=== PATIENT | female | born 1950 | race Caucasian/White ===

== ENCOUNTER 2017-01-29 10:48 | Day surgery (SDC) | payer MEDICARE, BC ==
[~2017-01-29 10:48] MED LIST: Midazolam 1 MG/ML 2 ML SDV ONE; Propofol 200 MG/20 ML SDV ONE; fentaNYL 100 MCG/2 ML SDV ONE
[2017-01-29] MEDS ORDERED: Lactated Ringers 1,000 ML IV SCH (11:30)
[2017-01-29] MEDS ORDERED: Propofol 200 MG/20 ML SDV ONE (13:40)
[2017-01-29 14:57] VITALS: BP 147/85
--- NOTE | 2017-01-29 21:37 | OR ---
DATE OF PROCEDURE: 01/29/2017 PREOPERATIVE DIAGNOSIS: History of polyps, incomplete colonoscopy. POSTOPERATIVE DIAGNOSIS: Unremarkable colonoscopy, history of colon polyps. PROCEDURE: Colonoscopy to the cecum. ANESTHESIA: IV anesthesia with monitored anesthesia care. INDICATION: This 66-year-old white female is referred for a colonoscopy. The chart says this is done for screening. Her last colonoscopic exam was done three years ago. She says that was an incomplete colonoscopy. Review of the record shows there was lot of stool in the cecum and right colon making a complete mucosal examination impossible. She has a history in the record of colon polyps. I counseled her for a colonoscopy with possible biopsy and/or polypectomy including risks and alternatives, and she gave her informed consent to proceed. DESCRIPTION OF PROCEDURE: The patient was placed in the left lateral decubitus position. IV anesthesia was administered by the Anesthesia Service. Time-out was held. A rectal exam was performed, which was unremarkable. The flexible video Olympus colonoscope was introduced through her anus, up her rectum, and out her colon all the way to the cecum. To accomplish this, we had to apply some abdominal compression. Once the cecum was reached, the scope was slowly withdrawn examining the mucosa throughout. The prep was good. No mucosal abnormalities were noted. The scope was retroflexed in the rectum with the distal rectum appearing unremarkable. The scope was straightened and removed. She tolerated the procedure well. Marcus Taveras MD /[id number] JOSELINE
== END 2017-01-29 15:00 | disposition home or self-care (01) ==
LOC: JP.SDS 10:48
PROVIDERS: ATTEND Surgery
DX: Z12.11 Encounter for screening for malignant neoplasm of colon (principal); Z86.010 Personal history of colon polyps; E11.9 Type 2 diabetes mellitus without complications; I10 Essential (primary) hypertension; Z79.899 Other long term (current) drug therapy
CPT/HCPCS: G0105; J2250; J2704; J3010; J7120

== ENCOUNTER 2021-04-20 17:27 | Inpatient (IN) | payer MEDICARE, OTHER ==
[2021-04-20] MEDS ORDERED: Sodium Chloride 0.9% 10 ML Syringe FLUSH PRN (18:03)
--- NOTE | 2021-04-20 19:57 | CRLCR ---
For Patients: As a result of the Cures Act, medical imaging exams and procedure reports are released immediately into your electronic medical record. You may view this report before your referring provider. If you have questions, please contact your health care provider. Indication: hypoxia, febrile Technique: Chest 1 view Comparison: None Findings/Impression: Cardiovascular and mediastinum: Heart size and vasculature are normal in caliber and appearance. Mediastinum is within normal limits. Lungs and pleural space: Minimal linear atelectasis at both lung bases. No focal consolidation. No sign of pleural effusion. No pneumothorax. Bones and soft tissues: No significant findings. Dictated by Janene Hirsch MD @ 04/20/2021 7:56:[address] Janene Hirsch @ Apr 20 2021 7:56PM
[2021-04-20 20:03] LABS: CORONAVIRUS COVID-19 NAA POSITIVE (NEGATIVE)
--- NOTE | 2021-04-20 20:26 | CRLCT ---
For Patients: As a result of the Century Cures Act, medical imaging exams and procedure reports are released immediately into your electronic medical record. You may view this report before your referring provider. If you have questions, please contact your health care provider. INDICATION: Fall. Hit head. TECHNIQUE: CT of the head without contrast. Coronal and sagittal reformats are included. COMPARISON: None. FINDINGS: No acute intracranial hemorrhage. No mass effect or midline shift. No hydrocephalus or extra-axial collections. White matter is within normal limits for age. No acute osseous abnormalities. Moderate to advanced paranasal sinus mucosal thickening. Bilateral TMJ arthrosis. Normal soft tissues. IMPRESSION: IMPRESSION: 1. No acute intracranial abnormalities. Please note that all CT scans at this facility use dose modulation, iterative reconstruction, and/or weight-based dosing when appropriate to reduce radiation dose to as low as reasonably achievable. Dictated by Feliciano Farmer MD @ 04/20/2021 8:26:[address] Feliciano Farmer @ Apr 20 2021 8:26PM
--- NOTE | 2021-04-20 21:01 | EDM.PDOC ---
ED HPI GENERAL MEDICAL PROBLEM - General Chief Complaint: General Stated Complaint: WEAKNESS Time Seen by Provider: 04/20/21 18:01 Source of Information: Reports: Patient, Family () History Limitations: Reports: No Limitations - History of Present Illness INITIAL COMMENTS - FREE TEXT/NARRATIVE: Lucio is a 70-year-old female presenting to the ED for evaluation of hypoxia, generalized weakness, body aches, chills, and generally feeling ill. Patient was in her usual state of health until she got up to go to the bathroom last night at which point she felt like she could not find her balance and ended up falling hitting her head on the ground. There was no loss of consciousness and the patient went back to bed after urinating. This morning she awoke and she was still feeling ill as described above. Through the course of the day it continued to worsen to where she started to have chills. She went with her to the grocery store and proceeded to shop but by the time she got to the checkout line she was completely exhausted and could go no further. She was brought in by EMS for evaluation of hypoxia and generalized weakness. EMS had her on 3 L nasal cannula with oxygen sat of 90%. She has been continuing to have modest hypoxia despite being on oxygen. She is not normally on oxygen at home. - Related Data Allergies Allergy/AdvReac Type Severity Reaction Status Date / Time No Known Allergies Allergy Verified 01/29/17 11:19 Home Meds: Home Meds Aspirin [Maryjane Chewable] 81 mg PO DAILY 08/21/13 [History] FA/Lycopene/Lut/MV,Ca,Iron,Min [Centrum] 1 tab PO DAILY 08/21/13 [History] Lisinopril 2.5 mg PO DAILY 08/21/13 [History] Pregabalin [Lyrica] 150 mg PO BID 08/21/13 [History] atorvaSTATin [Lipitor] 20 mg PO BEDTIME 08/21/13 [History] metFORMIN HCl [Glumetza] 1,000 mg PO BID 08/21/13 [History] Ammonium Lactate [Lac-Hydrin 12% Crm] 1 cm TOP BID 01/27/17 [History] Cyanocobalamin (Vitamin B-12) [Vitamin B-12] 1,000 mcg PO DAILY 01/27/17 [History] Flaxseed Oil [Flax Oil] 2,000 mg PO BID 01/27/17 [History] Meclizine [Antivert] 25 mg PO Q6H PRN 01/27/17 [History] Naltrexone 25 mg PO DAILY 01/27/17 [History] Naltrexone HCl/Bupropion HCl [Contrave ER 8-90 mg Tablet] 2 tab PO BID 01/27/17 [History] Triamcinolone Acetonide [Triamcinolone Acetonide 0.1% Oint] 1 cm TOP TID 01/27/17 [History] Dulaglutide [Trulicity] 1.5 mg SQ WEEKLY 04/20/21 [History] Past Medical History HEENT History: Reports: Cataract Cardiovascular History: Reports: Blood Clots/VTE/DVT, High Cholesterol, Hypertension 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: Psychiatric History: Reports: Depression Endocrine/Metabolic History: Reports: Diabetes, Type II Hematologic History: Reports: B12 Deficiency Oncologic (Cancer) History: Reports: Basal Cell Carcinoma Dermatologic History: Reports: Other (See Below) Other Dermatologic History: dry skin - Infectious Disease History Infectious Disease History: Reports: Chicken Pox, Measles, Mumps - Past Surgical History HEENT Surgical History: Reports: Tonsillectomy GI Surgical History: Reports: Cholecystectomy, Colonoscopy Female Surgical History: Reports: Breast Biopsy, Tubal Ligation Neurological Surgical History: Reports: Other (See Below) Other Neurological Surgeries/Procedures: lower back pain, herniated disc and bone spur Musculoskeletal Surgical History: Reports: Hip Replacement, Other (See Below) Other Musculoskeletal Surgeries/Procedures:: right hip replacement Social & Family History - Tobacco Use Tobacco Use Status *Q: Never Tobacco User - Caffeine Use Caffeine Use: Reports: Soda - Recreational Drug Use Recreational Drug Use: No ED ROS GENERAL - Review of Systems Review Of Systems: See Below Constitutional: Reports: Chills, Malaise, Weakness, Decreased Appetite HEENT: Reports: No Symptoms Respiratory: Reports: Shortness of Breath Cardiovascular: Reports: No Symptoms Endocrine: Reports: Fatigue GI/Abdominal: Reports: Nausea. Denies: Diarrhea, Vomiting : Reports: No Symptoms Musculoskeletal: Reports: Muscle Pain Skin: Reports: Other (Patient has chronic venous insufficiency with a venous stasis ulcer on the left lower leg. She is in an Unna boot for this.) Neurological: Reports: Dizziness, Difficulty Walking Psychiatric: Reports: No Symptoms Hematologic/Lymphatic: Reports: No Symptoms Immunologic: Reports: No Symptoms ED EXAM, GENERAL - Physical Exam Exam: See Below Exam Limited By: No Limitations General Appearance: Alert, Anxious, Mild Distress Eye Exam: Bilateral Eye: EOMI, PERRL Ears: Normal TMs Nose: Nasal Swelling, Clear Rhinorrhea Throat/Mouth: Normal Inspection, Normal Oropharynx, Normal Voice, No Airway Compromise Head: Atraumatic, Normocephalic Neck: Normal Inspection, Supple Respiratory/Chest: No Respiratory Distress, Crackles (Bibasilar) Cardiovascular: Normal Peripheral Pulses, Regular Rate, Rhythm, No Murmur Peripheral Pulses: 2+: Radial (L), Radial (R), Dorsalis Pedis (L), Dorsalis Pedis (R) GI/Abdominal: Normal Bowel Sounds, Soft, Non-Tender Back Exam: Normal Inspection, Full Range of Motion Extremities: Normal Range of Motion, Other (Chronic venous stasis ulceration medial lower left leg) Neurological: Alert, Oriented, CN II-XII Intact, Normal Cognition, No Motor/Sensory Deficits Psychiatric: Normal Affect, Anxious Skin Exam: Wound/Incision (Chronic venous stasis ulcer medial lower left leg) Lymphatic: No Adenopathy Course - Vital Signs Last Recorded V/S: Last Vital Signs Temp 38.8 C H 04/20/21 17:55 Pulse 89 04/20/21 18:52 Resp 17 04/20/21 18:52 BP 135/66 04/20/21 18:52 Pulse Ox 87 L 04/20/21 18:52 - Orders/Labs/Meds Orders: Active Orders 24 hr Category Date Time Status Chest 1V Frontal [CR] Stat Exams 04/20/21 18:56 Taken CULTURE BLOOD [BC] Urgent Lab 04/20/21 18:05 Received CULTURE BLOOD [BC] Urgent Lab 04/20/21 18:15 Received CULTURE URINE [RM] Stat Lab 04/20/21 19:47 Received CULTURE URINE [RM] Stat Lab 04/20/21 20:55 Ordered Sodium Chloride 0.9% [Saline Flush] Med 04/20/21 18:03 Active 10 ml FLUSH ASDIRECTED PRN Blood Culture x2 Reflex Set [OM.PC] Urgent Oth 04/20/21 18:03 Ordered Isolation [COMM] Stat Oth 04/20/21 19:05 Ordered Saline Lock Insert [OM.PC] Routine Oth 04/20/21 18:03 Ordered Medication Orders Sodium Chloride (Sodium Chloride 0.9% 10 Ml Syringe) 10 ml FLUSH ASDIRECTED PRN PRN Reason: Keep Vein Open Last Admin: 04/20/21 18:32 Dose: 10 ml Documented by: KENAN Labs: Laboratory Tests 04/20/21 04/20/21 04/20/21 Range/Units 18:03 18:05 18:05 WBC 8.1 (4.5-11.0) K/uL RBC 3.92 (3.30-5.50) M/uL Hgb 11.7 L (12.0-15.0) g/dL Hct 35.5 L (36.0-48.0) % MCV 91 (80-98) fL MCH 30 (27-31) pg MCHC 33 (32-36) % Plt Count 211 (150-400) K/uL Neut % (Auto) 78.7 H (36-66) % Lymph % (Auto) 8.8 L (24-44) % Coleman % (Auto) 10.4 H (2-6) % Eos % (Auto) 2.0 (2-4) % Baso % (Auto) 0.1 (0-1) % D-Dimer, Quantitative (0.0-500.0) ng/mL Sodium 137 L (140-148) mmol/L Potassium 4.0 (3.6-5.2) mmol/L Chloride 99 L (100-108) mmol/L Carbon Dioxide 28 (21-32) mmol/L Anion Gap 14.0 (5.0-14.0) mmol/L BUN 15 (7-18) mg/dL Creatinine 1.2 H (0.6-1.0) mg/dL Est Cr Clr Drug Dosing 49.62 mL/min Estimated GFR (MDRD) 44 L (>60) Glucose 168 H (74-106) mg/dL Lactic Acid 1.4 (0.4-2.0) mmol/L Calcium 7.9 L (8.5-10.1) mg/dL Total Bilirubin 0.8 (0.2-1.0) mg/dL AST 36 (15-37) U/L ALT 24 (12-78) U/L Alkaline Phosphatase 64 (46-116) U/L C-Reactive Protein (0.0-0.3) mg/dL Total Protein 6.4 (6.4-8.2) g/dL Albumin 2.8 L (3.4-5.0) g/dL Globulin 3.6 H (2.3-3.5) g/dL Albumin/Globulin Ratio 0.8 L (1.2-2.2) Procalcitonin ng/mL Urine Color (YELLOW) Urine Appearance (CLEAR) Urine pH (5.0-8.0) Ur Specific [place] (1.008-1.030) Urine Protein (NEGATIVE) mg/dL Urine Glucose (UA) (NEGATIVE) mg/dL Urine Ketones (NEGATIVE) mg/dL Urine Occult Blood (NEGATIVE) Urine Nitrite (NEGATIVE) Urine Bilirubin (NEGATIVE) Urine Urobilinogen (0.2-1.0) EU/dL Ur Leukocyte Esterase (NEGATIVE) Urine RBC (0-5) Urine WBC (0-5) Ur Epithelial Cells Amorphous Sediment Urine Bacteria Urine Mucus Urine Other Influenza Type A RNA (NEGATIVE) RSV RNA (INAAT) (NEGATIVE) Influenza Type B RNA (NEGATIVE) SARS-CoV-2 RNA (CHAMP) (NEGATIVE) 04/20/21 04/20/21 04/20/21 Range/Units 18:30 19:05 19:47 WBC (4.5-11.0) K/uL RBC (3.30-5.50) M/uL Hgb (12.0-15.0) g/dL Hct (36.0-48.0) % MCV (80-98) fL MCH (27-31) pg MCHC (32-36) % Plt Count (150-400) K/uL Neut % (Auto) (36-66) % Lymph % (Auto) (24-44) % Coleman % (Auto) (2-6) % Eos % (Auto) (2-4) % Baso % (Auto) (0-1) % D-Dimer, Quantitative (0.0-500.0) ng/mL Sodium (140-148) mmol/L Potassium (3.6-5.2) mmol/L Chloride (100-108) mmol/L Carbon Dioxide (21-32) mmol/L Anion Gap (5.0-14.0) mmol/L BUN (7-18) mg/dL Creatinine (0.6-1.0) mg/dL Est Cr Clr Drug Dosing mL/min Estimated GFR (MDRD) (>60) Glucose (74-106) mg/dL Lactic Acid (0.4-2.0) mmol/L Calcium (8.5-10.1) mg/dL Total Bilirubin (0.2-1.0) mg/dL AST (15-37) U/L ALT (12-78) U/L Alkaline Phosphatase (46-116) U/L C-Reactive Protein (0.0-0.3) mg/dL Total Protein (6.4-8.2) g/dL Albumin (3.4-5.0) g/dL Globulin (2.3-3.5) g/dL Albumin/Globulin Ratio (1.2-2.2) Procalcitonin 0.06 ng/mL Urine Color Yellow (YELLOW) Urine Appearance Clear (CLEAR) Urine pH 5.5 (5.0-8.0) Ur Specific [place] 1.020 (1.008-1.030) Urine Protein 30 H (NEGATIVE) mg/dL Urine Glucose (UA) Negative (NEGATIVE) mg/dL Urine Ketones Negative (NEGATIVE) mg/dL Urine Occult Blood Trace-intact H (NEGATIVE) Urine Nitrite Negative (NEGATIVE) Urine Bilirubin Negative (NEGATIVE) Urine Urobilinogen 0.2 (0.2-1.0) EU/dL Ur Leukocyte Esterase Trace H (NEGATIVE) Urine RBC 0-5 (0-5) Urine WBC 10-20 H (0-5) Ur Epithelial Cells Few Amorphous Sediment Not seen Urine Bacteria Moderate Urine Mucus Rare Urine Other Influenza Type A RNA Negative (NEGATIVE) RSV RNA (INAAT) Negative (NEGATIVE) Influenza Type B RNA Negative (NEGATIVE) SARS-CoV-2 RNA (CHAMP) Positive H (NEGATIVE) 04/20/21 04/20/21 Range/Units 20:16 20:16 WBC (4.5-11.0) K/uL RBC (3.30-5.50) M/uL Hgb (12.0-15.0) g/dL Hct (36.0-48.0) % MCV (80-98) fL MCH (27-31) pg MCHC (32-36) % Plt Count (150-400) K/uL Neut % (Auto) (36-66) % Lymph % (Auto) (24-44) % Coleman % (Auto) (2-6) % Eos % (Auto) (2-4) % Baso % (Auto) (0-1) % D-Dimer, Quantitative 2178.23 H (0.0-500.0) ng/mL Sodium (140-148) mmol/L Potassium (3.6-5.2) mmol/L Chloride (100-108) mmol/L Carbon Dioxide (21-32) mmol/L Anion Gap (5.0-14.0) mmol/L BUN (7-18) mg/dL Creatinine (0.6-1.0) mg/dL Est Cr Clr Drug Dosing mL/min Estimated GFR (MDRD) (>60) Glucose (74-106) mg/dL Lactic Acid (0.4-2.0) mmol/L Calcium (8.5-10.1) mg/dL Total Bilirubin (0.2-1.0) mg/dL AST (15-37) U/L ALT (12-78) U/L Alkaline Phosphatase (46-116) U/L C-Reactive Protein 13.24 H (0.0-0.3) mg/dL Total Protein (6.4-8.2) g/dL Albumin (3.4-5.0) g/dL Globulin (2.3-3.5) g/dL Albumin/Globulin Ratio (1.2-2.2) Procalcitonin ng/mL Urine Color (YELLOW) Urine Appearance (CLEAR) Urine pH (5.0-8.0) Ur Specific [place] (1.008-1.030) Urine Protein (NEGATIVE) mg/dL Urine Glucose (UA) (NEGATIVE) mg/dL Urine Ketones (NEGATIVE) mg/dL Urine Occult Blood (NEGATIVE) Urine Nitrite (NEGATIVE) Urine Bilirubin (NEGATIVE) Urine Urobilinogen (0.2-1.0) EU/dL Ur Leukocyte Esterase (NEGATIVE) Urine RBC (0-5) Urine WBC (0-5) Ur Epithelial Cells Amorphous Sediment Urine Bacteria Urine Mucus Urine Other Influenza Type A RNA (NEGATIVE) RSV RNA (INAAT) (NEGATIVE) Influenza Type B RNA (NEGATIVE) SARS-CoV-2 RNA (CHAMP) (NEGATIVE) Meds: Medications Generic Name Dose Route Start Last Admin Trade Name Freq PRN Reason Stop Dose Admin Sodium Chloride 10 ml 04/20/21 18:03 04/20/21 18:32 Sodium Chloride 0.9% 10 Ml Syringe FLUSH 10 ml ASDIRECTED PRN Administration Keep Vein Open - Radiology Interpretation Free Text/Narrative:: I reviewed the chest x-ray and report demonstrating bilateral basilar atelectasis without evidence for acute infiltrates. I reviewed the CT of the head and report demonstrating no acute intracranial or cranial abnormalities. - Re-Assessments/Exams Free Text/Narrative Re-Assessment/Exam: 04/20/21 21:02 Lucio is a 70-year-old female who despite having normal waveforms on tomography is significantly hypoxic on room air dropping below 80%. On 3 L via nasal cannula she is still in the 88 to 90% saturation and was put on a nonrebreather with improvement above 90%. This despite having relatively clear sounding lungs except for bibasilar crackles. Patient is febrile with a temperature of 1 to 1.3 F. Labs were obtained showing a normal leukocytosis at 8.1 with a hemoglobin of 11.7 hematocrit of 35.5 and a platelet count of 211,000. Her comprehensive metabolic panel shows a sodium 137, potassium 4.0, chloride 99, bicarbonate of 28, BUN of 15, creatinine of 1.2 and a glucose of 168. Her calcium is 7.9 with an albumin of 2.8 resulting in a corrected calcium of 8.2. We did obtain a Covid test on her and she is positive for COVID-19. Her lactate is 1.4. Precalcitonin is 0.06. Her C-reactive protein is 13.24. Her D-dimer is 2178. Urinalysis shows pyuria with WBCs 10-20 and positive leukocyte esterase. Blood and urine cultures have been obtained. Given the patient's current need for oxygen, I have arranged for her admission for COVID- 19. The patient has been vaccinated. I discussed the case with Dr. Cole who agrees to admit her. Departure - Departure Time of Disposition: 20:35 Disposition: Admitted As Inpatient 65 Clinical Impression: COVID-19, Hypoxia Urinary tract infection Qualifiers: Urinary tract infection type: site unspecified Hematuria presence: without hematuria Qualified Code(s): N39.0 - Urinary tract infection, site not specified - Discharge Information Referrals: Ryder Bhatt MD [Primary Care Provider] - Sepsis Event Note (ED) - Evaluation Sepsis Screening Result: Possible Sepsis Risk - Focused Exam Vital Signs: Vital Signs Temp Pulse Resp BP Pulse Ox 04/20/21 18:52 89 17 135/66 87 L 04/20/21 17:55 38.8 C H 93 24 H 113/75 85 L 04/20/21 17:47 38.8 C H 93 24 H 113/75 85 L - Problem List & Annotations (1) COVID-19 SNOMED Code(s): 255671733 Code(s): U07.1 - COVID-19 Status: Acute Priority: High Current Visit: Yes (2) Hypoxia SNOMED Code(s): 782055091 Code(s): R09.02 - HYPOXEMIA Status: Acute Priority: High Current Visit: Yes (3) Urinary tract infection SNOMED Code(s): 70816997 Code(s): N39.0 - URINARY TRACT INFECTION, SITE NOT SPECIFIED Status: Acute Priority: High Current Visit: Yes Qualifiers: Urinary tract infection type: site unspecified Hematuria presence: without hematuria Qualified Code(s): N39.0 - Urinary tract infection, site not specified - Problem List Review Problem List Initiated/Reviewed/Updated: Yes - My Orders Last 24 Hours: My Active Orders 04/20/21 18:03 Sodium Chloride 0.9% [Saline Flush] 10 ml FLUSH ASDIRECTED PRN Blood Culture x2 Reflex Set [OM.PC] Urgent Saline Lock Insert [OM.PC] Routine 04/20/21 18:05 CULTURE BLOOD [BC] Urgent 04/20/21 18:15 CULTURE BLOOD [BC] Urgent 04/20/21 18:56 Chest 1V Frontal [CR] Stat 04/20/21 19:05 Isolation [COMM] Stat 04/20/21 19:47 CULTURE URINE [RM] Stat - Assessment/Plan Last 24 Hours: My Active Orders 04/20/21 18:03 Sodium Chloride 0.9% [Saline Flush] 10 ml FLUSH ASDIRECTED PRN Blood Culture x2 Reflex Set [OM.PC] Urgent Saline Lock Insert [OM.PC] Routine 04/20/21 18:05 CULTURE BLOOD [BC] Urgent 04/20/21 18:15 CULTURE BLOOD [BC] Urgent 04/20/21 18:56 Chest 1V Frontal [CR] Stat 04/20/21 19:05 Isolation [COMM] Stat 04/20/21 19:47 CULTURE URINE [RM] Stat
--- NOTE | 2021-04-20 21:05 | PCM.HP.2 ---
H&P History of Present Illness - General Date of Service: 04/20/21 Admit Problem/Dx: Admission Diagnosis/Problem Admission Diagnosis/Problem Pneumonia Source of Information: Patient, Family, Provider History Limitations: Reports: Altered Mental Status (mild confusion) - History of Present Illness Initial Comments - Free Text/Narative: CC: I don't feel so good HPI: Wandy presents to the emergency room today with chills, myalgias, fatigue and shortness of breath. She is a little bit confused and has difficulty recalling recent events so most of the history is gathered from her as well as emergency room personnel. She reports feeling a little off for the past couple of weeks with mild dyspnea and some forgetfulness. She was a little more fatigued than usual yesterday and last night became very weak while trying to go to the bathroom. She had a fall and hit her head. She did not lose consciousness and was able to get up and go back to bed after going to the bathroom. This morning she had myalgias, chills, generalized weakness and some fatigue as well as dyspnea. Symptoms did progress throughout the day. While she was grocery shopping this evening she became so exhausted she could not go any further and was brought in for evaluation. She is not aware of any fevers and has not measured any temperatures. She has not been coughing. Appetite has been normal. No change in bowel or bladder habits. No sore throat. No obvious sick contacts that they are aware of. She did have both of her Covid vaccines completed in January of this year. Work-up in the emergency room revealed a Covid positive swab as well as a moderately elevated D-dimer and CRP. She is hypoxic and requiring about 4 L of supplemental oxygen. Vital signs are otherwise stable. The patient will be admitted for management of COVID-19 pneumonia with respiratory failure. - Related Data Allergies/Adverse Reactions: Allergies Allergy/AdvReac Type Severity Reaction Status Date / Time No Known Allergies Allergy Verified 01/29/17 11:19 Home Medications: Home Meds Aspirin [Maryjane Chewable] 81 mg PO DAILY 08/21/13 [History] FA/Lycopene/Lut/MV,Ca,Iron,Min [Centrum] 1 tab PO DAILY 08/21/13 [History] Lisinopril 2.5 mg PO DAILY 08/21/13 [History] Pregabalin [Lyrica] 150 mg PO BID 08/21/13 [History] atorvaSTATin [Lipitor] 20 mg PO BEDTIME 08/21/13 [History] metFORMIN HCl [Glumetza] 1,000 mg PO BID 08/21/13 [History] Ammonium Lactate [Lac-Hydrin 12% Crm] 1 cm TOP BID 01/27/17 [History] Cyanocobalamin (Vitamin B-12) [Vitamin B-12] 1,000 mcg PO DAILY 01/27/17 [History] Flaxseed Oil [Flax Oil] 2,000 mg PO BID 01/27/17 [History] Meclizine [Antivert] 25 mg PO Q6H PRN 01/27/17 [History] Naltrexone 25 mg PO DAILY 01/27/17 [History] Naltrexone HCl/Bupropion HCl [Contrave ER 8-90 mg Tablet] 2 tab PO BID 01/27/17 [History] Triamcinolone Acetonide [Triamcinolone Acetonide 0.1% Oint] 1 cm TOP TID [History] Dulaglutide [Trulicity] 1.5 mg SQ WEEKLY 04/20/21 [History] Past Medical History HEENT History: Reports: Cataract Cardiovascular History: Reports: Blood Clots/VTE/DVT, High Cholesterol, Hypertension 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: Psychiatric History: Reports: Depression Endocrine/Metabolic History: Reports: Diabetes, Type II Hematologic History: Reports: B12 Deficiency Oncologic (Cancer) History: Reports: Basal Cell Carcinoma Dermatologic History: Reports: Other (See Below) Other Dermatologic History: dry skin - Infectious Disease History Infectious Disease History: Reports: Chicken Pox, Measles, Mumps - Past Surgical History HEENT Surgical History: Reports: Tonsillectomy GI Surgical History: Reports: Cholecystectomy, Colonoscopy Female Surgical History: Reports: Breast Biopsy, Tubal Ligation Neurological Surgical History: Reports: Other (See Below) Other Neurological Surgeries/Procedures: lower back pain, herniated disc and bone spur Musculoskeletal Surgical History: Reports: Hip Replacement, Other (See Below) Other Musculoskeletal Surgeries/Procedures:: right hip replacement Social & Family History - Family History Cardiac: Denies: CAD - Tobacco Use Tobacco Use Status *Q: Never Tobacco User - Caffeine Use Caffeine Use: Reports: Soda - Alcohol Use Alcohol Use History: No - Recreational Drug Use Recreational Drug Use: No H&P Review of Systems - Review of Systems: Review Of Systems: See Below Free Text/Narrative: A complete 12 point review of systems was obtained. Pertinent positives and negatives are noted in the history of present illness. All other systems were reviewed and were negative except as noted. Patient was able to participate some and the rest was gathered from her . Exam - Exam Exam: See Below - Vital Signs Vital Signs: Last Vital Signs Temp 38.8 C H 04/20/21 17:55 Pulse 89 04/20/21 18:52 Resp 17 04/20/21 18:52 BP 135/66 04/20/21 18:52 Pulse Ox 87 L 04/20/21 18:52 Weight: 108.862 kg - Exam Quality Assessment: Supplemental Oxygen General: Alert, Cooperative, Mild Distress. No: Oriented HEENT: Conjunctiva Clear, Mucosa Moist & [place]. No: Scleral Icterus Neck: Supple, Trachea Midline. No: Lymphadenopathy, JVD Lungs: Normal Respiratory Effort, Crackles (Bibasilar) Cardiovascular: Regular Rate, Regular Rhythm. No: Systolic Murmur GI/Abdominal Exam: Normal Bowel Sounds, Soft, Non-Tender, No Distention Back Exam: Normal Inspection, Full Range of Motion Extremities: No Pedal Edema, Other (Left lower extremity is wrapped with an Unna boot from the base of the toes up to the knee). No: Increased Warmth Peripheral Pulses: 2+: Dorsalis Pedis (R) Skin: Warm, Dry Neuro Extensive - Mental Status: Alert, Nl Response to Commands. No: Oriented x3 Neuro Extensive - Motor, Sensory, Reflexes: No: Dysarthria, Abnormal Motor, Tremor Psychiatric: Alert, Normal Affect - Patient Data Lab Results Last 24 hrs: Laboratory Results - last 24 hr 04/20/21 04/20/21 04/20/21 Range/Units 18:03 18:05 18:05 WBC 8.1 (4.5-11.0) K/uL RBC 3.92 (3.30-5.50) M/uL Hgb 11.7 L (12.0-15.0) g/dL Hct 35.5 L (36.0-48.0) % MCV 91 (80-98) fL MCH 30 (27-31) pg MCHC 33 (32-36) % Plt Count 211 (150-400) K/uL Neut % (Auto) 78.7 H (36-66) % Lymph % (Auto) 8.8 L (24-44) % [place] % (Auto) 10.4 H (2-6) % Eos % (Auto) 2.0 (2-4) % Baso % (Auto) 0.1 (0-1) % D-Dimer, Quantitative (0.0-500.0) ng/mL Sodium 137 L (140-148) mmol/L Potassium 4.0 (3.6-5.2) mmol/L Chloride 99 L (100-108) mmol/L Carbon Dioxide 28 (21-32) mmol/L Anion Gap 14.0 (5.0-14.0) mmol/L BUN 15 (7-18) mg/dL Creatinine 1.2 H (0.6-1.0) mg/dL Est Cr Clr Drug Dosing 49.62 mL/min Estimated GFR (MDRD) 44 L (>60) Glucose 168 H (74-106) mg/dL Lactic Acid 1.4 (0.4-2.0) mmol/L Calcium 7.9 L (8.5-10.1) mg/dL Total Bilirubin 0.8 (0.2-1.0) mg/dL AST 36 (15-37) U/L ALT 24 (12-78) U/L Alkaline Phosphatase 64 (46-116) U/L C-Reactive Protein (0.0-0.3) mg/dL Total Protein 6.4 (6.4-8.2) g/dL Albumin 2.8 L (3.4-5.0) g/dL Globulin 3.6 H (2.3-3.5) g/dL Albumin/Globulin Ratio 0.8 L (1.2-2.2) Procalcitonin ng/mL Urine Color (YELLOW) Urine Appearance (CLEAR) Urine pH (5.0-8.0) Ur Specific [place] (1.008-1.030) Urine Protein (NEGATIVE) mg/dL Urine Glucose (UA) (NEGATIVE) mg/dL Urine Ketones (NEGATIVE) mg/dL Urine Occult Blood (NEGATIVE) Urine Nitrite (NEGATIVE) Urine Bilirubin (NEGATIVE) Urine Urobilinogen (0.2-1.0) EU/dL Ur Leukocyte Esterase (NEGATIVE) Urine RBC (0-5) Urine WBC (0-5) Ur Epithelial Cells Amorphous Sediment Urine Bacteria Urine Mucus Urine Other Influenza Type A RNA (NEGATIVE) RSV RNA (INAAT) (NEGATIVE) Influenza Type B RNA (NEGATIVE) SARS-CoV-2 RNA (CHAMP) (NEGATIVE) 04/20/21 04/20/21 04/20/21 Range/Units 18:30 19:05 19:47 WBC (4.5-11.0) K/uL RBC (3.30-5.50) M/uL Hgb (12.0-15.0) g/dL Hct (36.0-48.0) % MCV (80-98) fL MCH (27-31) pg MCHC (32-36) % Plt Count (150-400) K/uL Neut % (Auto) (36-66) % Lymph % (Auto) (24-44) % [place] % (Auto) (2-6) % Eos % (Auto) (2-4) % Baso % (Auto) (0-1) % D-Dimer, Quantitative (0.0-500.0) ng/mL Sodium (140-148) mmol/L Potassium (3.6-5.2) mmol/L Chloride (100-108) mmol/L Carbon Dioxide (21-32) mmol/L Anion Gap (5.0-14.0) mmol/L BUN (7-18) mg/dL Creatinine (0.6-1.0) mg/dL Est Cr Clr Drug Dosing mL/min Estimated GFR (MDRD) (>60) Glucose (74-106) mg/dL Lactic Acid (0.4-2.0) mmol/L Calcium (8.5-10.1) mg/dL Total Bilirubin (0.2-1.0) mg/dL AST (15-37) U/L ALT (12-78) U/L Alkaline Phosphatase (46-116) U/L C-Reactive Protein (0.0-0.3) mg/dL Total Protein (6.4-8.2) g/dL Albumin (3.4-5.0) g/dL Globulin (2.3-3.5) g/dL Albumin/Globulin Ratio (1.2-2.2) Procalcitonin 0.06 ng/mL Urine Color Yellow (YELLOW) Urine Appearance Clear (CLEAR) Urine pH 5.5 (5.0-8.0) Ur Specific [place] 1.020 (1.008-1.030) Urine Protein 30 H (NEGATIVE) mg/dL Urine Glucose (UA) Negative (NEGATIVE) mg/dL Urine Ketones Negative (NEGATIVE) mg/dL Urine Occult Blood Trace-intact H (NEGATIVE) Urine Nitrite Negative (NEGATIVE) Urine Bilirubin Negative (NEGATIVE) Urine Urobilinogen 0.2 (0.2-1.0) EU/dL Ur Leukocyte Esterase Trace H (NEGATIVE) Urine RBC 0-5 (0-5) Urine WBC 10-20 H (0-5) Ur Epithelial Cells Few Amorphous Sediment Not seen Urine Bacteria Moderate Urine Mucus Rare Urine Other Influenza Type A RNA Negative (NEGATIVE) RSV RNA (INAAT) Negative (NEGATIVE) Influenza Type B RNA Negative (NEGATIVE) SARS-CoV-2 RNA (CHAMP) Positive H (NEGATIVE) 04/20/21 04/20/21 Range/Units 20:16 20:16 WBC (4.5-11.0) K/uL RBC (3.30-5.50) M/uL Hgb (12.0-15.0) g/dL Hct (36.0-48.0) % MCV (80-98) fL MCH (27-31) pg MCHC (32-36) % Plt Count (150-400) K/uL Neut % (Auto) (36-66) % Lymph % (Auto) (24-44) % [place] % (Auto) (2-6) % Eos % (Auto) (2-4) % Baso % (Auto) (0-1) % D-Dimer, Quantitative 2178.23 H (0.0-500.0) ng/mL Sodium (140-148) mmol/L Potassium (3.6-5.2) mmol/L Chloride (100-108) mmol/L Carbon Dioxide (21-32) mmol/L Anion Gap (5.0-14.0) mmol/L BUN (7-18) mg/dL Creatinine (0.6-1.0) mg/dL Est Cr Clr Drug Dosing mL/min Estimated GFR (MDRD) (>60) Glucose (74-106) mg/dL Lactic Acid (0.4-2.0) mmol/L Calcium (8.5-10.1) mg/dL Total Bilirubin (0.2-1.0) mg/dL AST (15-37) U/L ALT (12-78) U/L Alkaline Phosphatase (46-116) U/L C-Reactive Protein 13.24 H (0.0-0.3) mg/dL Total Protein (6.4-8.2) g/dL Albumin (3.4-5.0) g/dL Globulin (2.3-3.5) g/dL Albumin/Globulin Ratio (1.2-2.2) Procalcitonin ng/mL Urine Color (YELLOW) Urine Appearance (CLEAR) Urine pH (5.0-8.0) Ur Specific [place] (1.008-1.030) Urine Protein (NEGATIVE) mg/dL Urine Glucose (UA) (NEGATIVE) mg/dL Urine Ketones (NEGATIVE) mg/dL Urine Occult Blood (NEGATIVE) Urine Nitrite (NEGATIVE) Urine Bilirubin (NEGATIVE) Urine Urobilinogen (0.2-1.0) EU/dL Ur Leukocyte Esterase (NEGATIVE) Urine RBC (0-5) Urine WBC (0-5) Ur Epithelial Cells Amorphous Sediment Urine Bacteria Urine Mucus Urine Other Influenza Type A RNA (NEGATIVE) RSV RNA (INAAT) (NEGATIVE) Influenza Type B RNA (NEGATIVE) SARS-CoV-2 RNA (CHAMP) (NEGATIVE) Result Diagrams: 04/20/21 18:03 04/20/21 18:05 Imaging Impressions Last 24 hrs: Chest x-ray-image personally reviewed and compared to the chest x-ray from 2011- heart size is normal. There is no mass, infiltrate or effusion. Sepsis Event Note - Evaluation Sepsis Screening Result: Possible Sepsis Risk - Focused Exam Vital Signs: Vital Signs Temp Pulse Resp BP Pulse Ox 04/20/21 18:52 89 17 135/66 87 L 04/20/21 17:55 38.8 C H 93 24 H 113/75 85 L 04/20/21 17:47 38.8 C H 93 24 H 113/75 85 L *Q Meaningful Use (ADM) - VTE Risk Assess *Q Each Risk Factor Represents 1 Point: Serious lung disease including pneumonia Total Score 1 Point Risk Factors: 1 Each Risk Factor Represents 2 Points: Age 60 - 74 Years Total Score 2 Point Risk Factors: 2 Each Risk Factor Represents 3 Points: History of DVT/PE Total Score 3 Point Risk Factors: 3 Each Risk Factor Represents 5 Points: None Total Score 5 Point Risk Factors: 0 Venous Thromboembolism Risk Factor Score *Q: 6 - Problem List (1) Pneumonia due to COVID-19 virus SNOMED Code(s): 334780376177624654 ICD Code: U07.1 - COVID-19; J12.82 - PNEUMONIA DUE TO CORONAVIRUS DISEASE 2018 Status: Acute Current Visit: Yes (2) Acute respiratory failure due to COVID-19 SNOMED Code(s): 473088599 ICD Code: U07.1 - COVID-19; J96.00 - ACUTE RESPIRATORY FAILURE, UNSP W HYPOXIA OR HYPERCAPNIA Status: Acute Current Visit: Yes (3) Urinary tract infection SNOMED Code(s): 22040616 ICD Code: N39.0 - URINARY TRACT INFECTION, SITE NOT SPECIFIED Status: Acute Priority: High Current Visit: Yes Qualifiers: Urinary tract infection type: site unspecified Hematuria presence: without hematuria Qualified Code(s): N39.0 - Urinary tract infection, site not specified (4) Type 2 diabetes mellitus SNOMED Code(s): 20752493 ICD Code: E11.9 - TYPE 2 DIABETES MELLITUS WITHOUT COMPLICATIONS Status: Chronic Current Visit: Yes Qualifiers: Diabetes mellitus intermediate project manager insulin use: without intermediate project manager use Diabetes mellitus complication status: with other specified complication Qualified Code(s): E11.69 - Type 2 diabetes mellitus with other specified complication Problem List Initiated/Reviewed/Updated: Yes Orders Last 24hrs: Active Orders 24 hr Category Date Time Status Patient Status Manage Transfer [TRANSFER] Routine ADT 04/20/21 20:55 Ordered Chest 1V Frontal [CR] Stat Exams 04/20/21 18:56 Taken CULTURE BLOOD [BC] Urgent Lab 04/20/21 18:05 Received CULTURE BLOOD [BC] Urgent Lab 04/20/21 18:15 Received CULTURE URINE [RM] Stat Lab 04/20/21 19:47 Received CULTURE URINE [RM] Stat Lab 04/20/21 20:58 Received Sodium Chloride 0.9% [Saline Flush] Med 04/20/21 18:03 Active 10 ml FLUSH ASDIRECTED PRN Blood Culture x2 Reflex Set [OM.PC] Urgent Oth 04/20/21 18:03 Ordered Isolation [COMM] Stat Oth 04/20/21 19:05 Ordered Saline Lock Insert [OM.PC] Routine Oth 04/20/21 18:03 Ordered Resuscitation Status Routine Resus Stat 04/20/21 20:58 Ordered Medication Orders Sodium Chloride (Sodium Chloride 0.9% 10 Ml Syringe) 10 ml FLUSH ASDIRECTED PRN PRN Reason: Keep Vein Open Last Admin: 04/20/21 18:32 Dose: 10 ml Documented by: KENAN Assessment/Plan Comment:: ASSESSMENT AND PLAN - COVID-19 pneumonia-complicated by acute respiratory failure with hypoxia. Manifestations of confusion, weakness, dyspnea and myalgias. Currently requiring about 4 L of oxygen. Moderate elevation of D-dimer and CRP. She is currently febrile. She did have both of her vaccines more than 2 months ago. We did review potential treatments for Covid including dexamethasone and remdesivir. They are aware that remdesivir is available through an emergency use authorization. We did discuss the potential risk versus benefit as well as monitoring. They were agreeable to proceeding. -Dexamethasone 6 mg daily (1) -Remdesivir 200 mg x 1 and then daily x4 -Enoxaparin 40 mg daily -Supplement oxygen -As needed albuterol inhaler -Repeat labs every 2 to 3 days unless clinically changing -Isolation precautions Acute cystitis without hematuria-UTI could explain some of her confusion. No evidence for sepsis. -Ceftriaxone -Follow-up urine culture Type 2 diabetes mellitus-controlled per history. -Continue home medications Maintenance issues - -DVT prophylaxis-enoxaparin -GI prophylaxis-not indicated -Nutrition-diabetic -Em catheter-not indicated CODE STATUS -no CPR but intubation is okay Admission justification -this patient will be admitted for inpatient services and is medically appropriate meeting medical necessity for inpatient admission as outlined in my documentation. I reasonably expect the patient will require inpatient services that span a period time over 2 midnights. I reasonably expect this patient to be discharged or transferred within 96 hours [facility]. Disposition -I anticipate discharge home after the hospital stay Primary care physician -Dr. Farzaneh Cole M.D. - Mortality Measure Prognosis:: Good
[2021-04-20] MEDS ORDERED: Ondansetron 4 MG Tab.DIS PO PRN (21:51)
[2021-04-20] MEDS ORDERED: LORazepam 2 MG/ML SDV IVPUSH PRN (21:51)
[2021-04-20] MEDS ORDERED: Acetaminophen 325 MG Tab PO PRN (21:51)
[2021-04-20] MEDS ORDERED: Albuterol 8 GM Inhaler INH PRN (21:51)
[2021-04-20] MEDS ORDERED: Ondansetron 4 MG/2 ML SDV IV PRN (21:51)
[2021-04-20] MEDS ORDERED: Benzonatate 100 MG Cap PO PRN (21:51)
[2021-04-20] MEDS ORDERED: Magnesium Hydroxide 400 MG/5 ML Susp 30 ML Cup PO PRN (21:51)
[2021-04-20] MEDS ORDERED: guaiFENesin/Dextromethorphan 100-10 MG/5 ML Soln 10 ML Cup PO PRN (21:51)
[2021-04-20] MEDS ORDERED: REMDESIVIR 200 MG in Sodium Chloride 0.9% 250 ML IV ONE (21:51)
[2021-04-20] MEDS: Enoxaparin 40 MG/0.4 ML Syringe SUBCUT SCH (22:45)
[2021-04-20] MEDS: Melatonin 3 MG Tab PO SCH (22:45)
[2021-04-20] MEDS: Lactobacillus Rhamnosus GG (Probiotic) Cap PO SCH (22:45)
[2021-04-20] MEDS: cefTRIAXone 1 GM in Sodium Chloride 0.9% 50 ML IV SCH (23:00)
[2021-04-20] MEDS: Dexamethasone 4 MG/ML SDV IVPUSH SCH (23:38)
[2021-04-21] MEDS: Insulin Lispro 100 Unit/ML 3 ML KwikPen SUBCUT SCH ×4 (09:34→22:00)
[2021-04-21] MEDS: metFORMIN 500 MG Tab PO SCH ×2 (09:39→17:27)
[2021-04-21] MEDS: Aspirin 81 MG Tab.Chew PO SCH (09:41)
[2021-04-21] MEDS: Pregabalin 75 MG Cap PO SCH ×2 (09:41→20:40)
[2021-04-21] MEDS: Lactobacillus Rhamnosus GG (Probiotic) Cap PO SCH ×2 (09:41→20:18)
[2021-04-21] MEDS: Cyanocobalamin (Vitamin B12) 1,000 MCG Tab PO SCH (09:42)
--- NOTE | 2021-04-21 11:18 | PCM.PN ---
- General Info Date of Service: 04/21/21 Subjective Update: No acute events overnight. Patient did have increasing oxygen requirements initially and was up to 6 L of oxygen for a while but is now down to 4. She reports that she feels a little better today but still feels weak and still has myalgias as well as chills. She did not have any fevers overnight following admission. Heart rate and blood pressure have been stable. Appetite is a little better today. Seems to be more clear today than yesterday. Functional Status: Reports: Pain Controlled, Tolerating Diet - Review of Systems General: Reports: Weakness. Denies: Fever Pulmonary: Reports: Shortness of Breath Gastrointestinal: Reports: Diarrhea - Patient Data Vitals - Most Recent: Last Vital Signs Temp 35.3 C L 04/21/21 11:00 Pulse 72 04/21/21 11:00 Resp 18 04/21/21 11:00 BP 116/62 04/21/21 11:00 Pulse Ox 93 L 04/21/21 11:00 Weight - Most Recent: 108.862 kg Lab Results Last 24 Hours: Laboratory Results - last 24 hr 04/20/21 04/20/21 04/20/21 Range/Units 18:03 18:05 18:05 WBC 8.1 (4.5-11.0) K/uL RBC 3.92 (3.30-5.50) M/uL Hgb 11.7 L (12.0-15.0) g/dL Hct 35.5 L (36.0-48.0) % MCV 91 (80-98) fL MCH 30 (27-31) pg MCHC 33 (32-36) % Plt Count 211 (150-400) K/uL Neut % (Auto) 78.7 H (36-66) % Lymph % (Auto) 8.8 L (24-44) % [place] % (Auto) 10.4 H (2-6) % Eos % (Auto) 2.0 (2-4) % Baso % (Auto) 0.1 (0-1) % D-Dimer, Quantitative (0.0-500.0) ng/mL Sodium 137 L (140-148) mmol/L Potassium 4.0 (3.6-5.2) mmol/L Chloride 99 L (100-108) mmol/L Carbon Dioxide 28 (21-32) mmol/L Anion Gap 14.0 (5.0-14.0) mmol/L BUN 15 (7-18) mg/dL Creatinine 1.2 H (0.6-1.0) mg/dL Est Cr Clr Drug Dosing 49.62 mL/min Estimated GFR (MDRD) 44 L (>60) Glucose 168 H (74-106) mg/dL POC Glucose (74-106) mg/dL Lactic Acid 1.4 (0.4-2.0) mmol/L Calcium 7.9 L (8.5-10.1) mg/dL Total Bilirubin 0.8 (0.2-1.0) mg/dL AST 36 (15-37) U/L ALT 24 (12-78) U/L Alkaline Phosphatase 64 (46-116) U/L C-Reactive Protein (0.0-0.3) mg/dL Total Protein 6.4 (6.4-8.2) g/dL Albumin 2.8 L (3.4-5.0) g/dL Globulin 3.6 H (2.3-3.5) g/dL Albumin/Globulin Ratio 0.8 L (1.2-2.2) Procalcitonin ng/mL Urine Color (YELLOW) Urine Appearance (CLEAR) Urine pH (5.0-8.0) Ur Specific Cade (1.008-1.030) Urine Protein (NEGATIVE) mg/dL Urine Glucose (UA) (NEGATIVE) mg/dL Urine Ketones (NEGATIVE) mg/dL Urine Occult Blood (NEGATIVE) Urine Nitrite (NEGATIVE) Urine Bilirubin (NEGATIVE) Urine Urobilinogen (0.2-1.0) EU/dL Ur Leukocyte Esterase (NEGATIVE) Urine RBC (0-5) Urine WBC (0-5) Ur Epithelial Cells Amorphous Sediment Urine Bacteria Urine Mucus Urine Other Influenza Type A RNA (NEGATIVE) RSV RNA (INAAT) (NEGATIVE) Influenza Type B RNA (NEGATIVE) SARS-CoV-2 RNA (CHAMP) (NEGATIVE) 04/20/21 04/20/21 04/20/21 Range/Units 18:30 19:05 19:47 WBC (4.5-11.0) K/uL RBC (3.30-5.50) M/uL Hgb (12.0-15.0) g/dL Hct (36.0-48.0) % MCV (80-98) fL MCH (27-31) pg MCHC (32-36) % Plt Count (150-400) K/uL Neut % (Auto) (36-66) % Lymph % (Auto) (24-44) % [place] % (Auto) (2-6) % Eos % (Auto) (2-4) % Baso % (Auto) (0-1) % D-Dimer, Quantitative (0.0-500.0) ng/mL Sodium (140-148) mmol/L Potassium (3.6-5.2) mmol/L Chloride (100-108) mmol/L Carbon Dioxide (21-32) mmol/L Anion Gap (5.0-14.0) mmol/L BUN (7-18) mg/dL Creatinine (0.6-1.0) mg/dL Est Cr Clr Drug Dosing mL/min Estimated GFR (MDRD) (>60) Glucose (74-106) mg/dL POC Glucose (74-106) mg/dL Lactic Acid (0.4-2.0) mmol/L Calcium (8.5-10.1) mg/dL Total Bilirubin (0.2-1.0) mg/dL AST (15-37) U/L ALT (12-78) U/L Alkaline Phosphatase (46-116) U/L C-Reactive Protein (0.0-0.3) mg/dL Total Protein (6.4-8.2) g/dL Albumin (3.4-5.0) g/dL Globulin (2.3-3.5) g/dL Albumin/Globulin Ratio (1.2-2.2) Procalcitonin 0.06 ng/mL Urine Color Yellow (YELLOW) Urine Appearance Clear (CLEAR) Urine pH 5.5 (5.0-8.0) Ur Specific Cade 1.020 (1.008-1.030) Urine Protein 30 H (NEGATIVE) mg/dL Urine Glucose (UA) Negative (NEGATIVE) mg/dL Urine Ketones Negative (NEGATIVE) mg/dL Urine Occult Blood Trace-intact H (NEGATIVE) Urine Nitrite Negative (NEGATIVE) Urine Bilirubin Negative (NEGATIVE) Urine Urobilinogen 0.2 (0.2-1.0) EU/dL Ur Leukocyte Esterase Trace H (NEGATIVE) Urine RBC 0-5 (0-5) Urine WBC 10-20 H (0-5) Ur Epithelial Cells Few Amorphous Sediment Not seen Urine Bacteria Moderate Urine Mucus Rare Urine Other Influenza Type A RNA Negative (NEGATIVE) RSV RNA (INAAT) Negative (NEGATIVE) Influenza Type B RNA Negative (NEGATIVE) SARS-CoV-2 RNA (CHAMP) Positive H (NEGATIVE) 04/20/21 04/20/21 04/21/21 Range/Units 20:16 20:16 05:30 WBC 7.9 (4.5-11.0) K/uL RBC 4.10 (3.30-5.50) M/uL Hgb 12.1 (12.0-15.0) g/dL Hct 37.2 (36.0-48.0) % MCV 91 (80-98) fL MCH 30 (27-31) pg MCHC 33 (32-36) % Plt Count 227 (150-400) K/uL Neut % (Auto) (36-66) % Lymph % (Auto) (24-44) % [place] % (Auto) (2-6) % Eos % (Auto) (2-4) % Baso % (Auto) (0-1) % D-Dimer, Quantitative 2178.23 H (0.0-500.0) ng/mL Sodium (140-148) mmol/L Potassium (3.6-5.2) mmol/L Chloride (100-108) mmol/L Carbon Dioxide (21-32) mmol/L Anion Gap (5.0-14.0) mmol/L BUN (7-18) mg/dL Creatinine (0.6-1.0) mg/dL Est Cr Clr Drug Dosing mL/min Estimated GFR (MDRD) (>60) Glucose (74-106) mg/dL POC Glucose (74-106) mg/dL Lactic Acid (0.4-2.0) mmol/L Calcium (8.5-10.1) mg/dL Total Bilirubin (0.2-1.0) mg/dL AST (15-37) U/L ALT (12-78) U/L Alkaline Phosphatase (46-116) U/L C-Reactive Protein 13.24 H (0.0-0.3) mg/dL Total Protein (6.4-8.2) g/dL Albumin (3.4-5.0) g/dL Globulin (2.3-3.5) g/dL Albumin/Globulin Ratio (1.2-2.2) Procalcitonin ng/mL Urine Color (YELLOW) Urine Appearance (CLEAR) Urine pH (5.0-8.0) Ur Specific Cade (1.008-1.030) Urine Protein (NEGATIVE) mg/dL Urine Glucose (UA) (NEGATIVE) mg/dL Urine Ketones (NEGATIVE) mg/dL Urine Occult Blood (NEGATIVE) Urine Nitrite (NEGATIVE) Urine Bilirubin (NEGATIVE) Urine Urobilinogen (0.2-1.0) EU/dL Ur Leukocyte Esterase (NEGATIVE) Urine RBC (0-5) Urine WBC (0-5) Ur Epithelial Cells Amorphous Sediment Urine Bacteria Urine Mucus Urine Other Influenza Type A RNA (NEGATIVE) RSV RNA (INAAT) (NEGATIVE) Influenza Type B RNA (NEGATIVE) SARS-CoV-2 RNA (CHAMP) (NEGATIVE) 04/21/21 04/21/21 Range/Units 05:30 07:35 WBC (4.5-11.0) K/uL RBC (3.30-5.50) M/uL Hgb (12.0-15.0) g/dL Hct (36.0-48.0) % MCV (80-98) fL MCH (27-31) pg MCHC (32-36) % Plt Count (150-400) K/uL Neut % (Auto) (36-66) % Lymph % (Auto) (24-44) % [place] % (Auto) (2-6) % Eos % (Auto) (2-4) % Baso % (Auto) (0-1) % D-Dimer, Quantitative (0.0-500.0) ng/mL Sodium 140 (140-148) mmol/L Potassium 3.7 (3.6-5.2) mmol/L Chloride 101 (100-108) mmol/L Carbon Dioxide 28 (21-32) mmol/L Anion Gap 10.6 (5.0-14.0) mmol/L BUN 14 (7-18) mg/dL Creatinine 1.0 (0.6-1.0) mg/dL Est Cr Clr Drug Dosing 59.55 mL/min Estimated GFR (MDRD) 55 L (>60) Glucose 194 H (74-106) mg/dL POC Glucose 161 H (74-106) mg/dL Lactic Acid (0.4-2.0) mmol/L Calcium 8.0 L (8.5-10.1) mg/dL Total Bilirubin 0.5 (0.2-1.0) mg/dL AST 42 H (15-37) U/L ALT 22 (12-78) U/L Alkaline Phosphatase 64 (46-116) U/L C-Reactive Protein (0.0-0.3) mg/dL Total Protein 6.4 (6.4-8.2) g/dL Albumin 2.6 L (3.4-5.0) g/dL Globulin 3.8 H (2.3-3.5) g/dL Albumin/Globulin Ratio 0.7 L (1.2-2.2) Procalcitonin ng/mL Urine Color (YELLOW) Urine Appearance (CLEAR) Urine pH (5.0-8.0) Ur Specific Cade (1.008-1.030) Urine Protein (NEGATIVE) mg/dL Urine Glucose (UA) (NEGATIVE) mg/dL Urine Ketones (NEGATIVE) mg/dL Urine Occult Blood (NEGATIVE) Urine Nitrite (NEGATIVE) Urine Bilirubin (NEGATIVE) Urine Urobilinogen (0.2-1.0) EU/dL Ur Leukocyte Esterase (NEGATIVE) Urine RBC (0-5) Urine WBC (0-5) Ur Epithelial Cells Amorphous Sediment Urine Bacteria Urine Mucus Urine Other Influenza Type A RNA (NEGATIVE) RSV RNA (INAAT) (NEGATIVE) Influenza Type B RNA (NEGATIVE) SARS-CoV-2 RNA (CHAMP) (NEGATIVE) Med Orders - Current: Current Medications Acetaminophen (Acetaminophen 325 Mg Tab) 650 mg PO Q4H PRN PRN Reason: Pain (Mild 1-3)/fever Last Admin: 04/20/21 22:50 Dose: 650 mg Documented by: Albuterol (Albuterol 8 Gm Inhaler) 0 gm INH Q4H PRN PRN Reason: shortness of breath/wheezing Aspirin (Aspirin 81 Mg Tab.Chew) 81 mg PO DAILY [facility] Last Admin: 04/21/21 09:41 Dose: 81 mg Documented by: Atorvastatin Calcium (Atorvastatin 20 Mg Tab) 20 mg PO BEDTIME [facility] Benzonatate (Benzonatate 100 Mg Cap) 100 mg PO TID PRN PRN Reason: Cough Cyanocobalamin (Cyanocobalamin (Vitamin B12) 1,000 Mcg Tab) 1,000 mcg PO DAILY [facility] Last Admin: 04/21/21 09:42 Dose: 1,000 mcg Documented by: Dexamethasone (Dexamethasone 4 Mg/Ml Sdv) 6 mg IVPUSH Q24H [facility] Last Admin: 04/20/21 23:38 Dose: 6 mg Documented by: Enoxaparin Sodium (Enoxaparin 40 Mg/0.4 Ml Syringe) 40 mg SUBCUT Q24H [facility] Last Admin: 04/20/21 22:45 Dose: 40 mg Documented by: Guaifenesin/Dextromethorphan (Guaifenesin/Dextromethorphan 100-10 Mg/5 Ml Soln 10 Ml Cup) 10 ml PO Q4H PRN PRN Reason: Cough Remdesivir 100 mg/ Sodium (Chloride) 100 mls @ 100 mls/hr IV Q24H [facility] Stop: 04/24/21 21:59 Ceftriaxone Sodium 1 gm/ (Sodium Chloride) 50 mls @ 100 mls/hr IV Q24H [facility] Stop: 04/22/21 22:29 Last Admin: 04/20/21 23:00 Dose: 100 mls/hr Documented by: Insulin Human Lispro (Insulin Lispro 100 Unit/Ml 3 Ml Kwikpen) 0 unit SUBCUT QIDACANDBED [facility]; Protocol Last Admin: 04/21/21 09:34 Dose: 2 units Documented by: Lactobacillus Rhamnosus (Lactobacillus Rhamnosus Gg (Probiotic) Cap) 1 cap PO BID [facility] Last Admin: 04/21/21 09:41 Dose: 1 cap Documented by: Lorazepam (Lorazepam 2 Mg/Ml Sdv) 0.5 mg IVPUSH Q4H PRN PRN Reason: Nausea/Vomiting Magnesium Hydroxide (Magnesium Hydroxide 400 Mg/5 Ml Susp 30 Ml Cup) 30 ml PO Q12H PRN PRN Reason: Constipation Melatonin (Melatonin 3 Mg Tab) 9 mg PO BEDTIME [facility] Last Admin: 04/20/21 22:45 Dose: 9 mg Documented by: Metformin HCl (Metformin 500 Mg Tab) 1,000 mg PO BIDAC [facility] Last Admin: 04/21/21 09:39 Dose: 1,000 mg Documented by: Non-Formulary Medication (Naltrexone [Naltrexone]) 25 mg PO DAILY [facility] Non-Formulary Medication (Naltrexone Hcl/Bupropion Hcl [Contrave Er 8-90 Mg Tablet]) 2 tab PO BID [facility] Ondansetron HCl (Ondansetron 4 Mg/2 Ml Sdv) 4 mg IV Q6H PRN PRN Reason: Nausea/Vomiting Ondansetron HCl (Ondansetron 4 Mg Tab.Dis) 4 mg PO Q6H PRN PRN Reason: Nausea able to take PO Pregabalin (Pregabalin 75 Mg Cap) 150 mg PO BID [facility] Last Admin: 04/21/21 09:41 Dose: 150 mg Documented by: Senna/Docusate Sodium (Docusate Sodium/Sennosides 50-8.6 Mg Tab) 1 tab PO BID PRN PRN Reason: Constipation Sodium Chloride (Sodium Chloride 0.9% 10 Ml Syringe) 10 ml FLUSH ASDIRECTED PRN PRN Reason: Keep Vein Open Last Admin: 04/20/21 18:32 Dose: 10 ml Documented by: Discontinued Medications Remdesivir 200 mg/ Sodium (Chloride) 250 mls @ 250 mls/hr IV ONETIME ONE Stop: 04/20/21 21:52 Last Admin: 04/20/21 23:43 Dose: 250 mls/hr Documented by: - Exam Quality Assessment: Supplemental Oxygen General: Alert, Oriented, Cooperative, No Acute Distress Lungs: Normal Respiratory Effort GI/Abdominal Exam: Soft, No Distention Extremities: No Pedal Edema, Other (left leg wrapped in Unna boot ) Skin: Warm, Dry Psy/Mental Status: Alert, Normal Affect - Patient Data Lab Results Last 24 hrs: Laboratory Results - last 24 hr 04/20/21 04/20/21 04/20/21 Range/Units 18:03 18:05 18:05 WBC 8.1 (4.5-11.0) K/uL RBC 3.92 (3.30-5.50) M/uL Hgb 11.7 L (12.0-15.0) g/dL Hct 35.5 L (36.0-48.0) % MCV 91 (80-98) fL MCH 30 (27-31) pg MCHC 33 (32-36) % Plt Count 211 (150-400) K/uL Neut % (Auto) 78.7 H (36-66) % Lymph % (Auto) 8.8 L (24-44) % [place] % (Auto) 10.4 H (2-6) % Eos % (Auto) 2.0 (2-4) % Baso % (Auto) 0.1 (0-1) % D-Dimer, Quantitative (0.0-500.0) ng/mL Sodium 137 L (140-148) mmol/L Potassium 4.0 (3.6-5.2) mmol/L Chloride 99 L (100-108) mmol/L Carbon Dioxide 28 (21-32) mmol/L Anion Gap 14.0 (5.0-14.0) mmol/L BUN 15 (7-18) mg/dL Creatinine 1.2 H (0.6-1.0) mg/dL Est Cr Clr Drug Dosing 49.62 mL/min Estimated GFR (MDRD) 44 L (>60) Glucose 168 H (74-106) mg/dL POC Glucose (74-106) mg/dL Lactic Acid 1.4 (0.4-2.0) mmol/L Calcium 7.9 L (8.5-10.1) mg/dL Total Bilirubin 0.8 (0.2-1.0) mg/dL AST 36 (15-37) U/L ALT 24 (12-78) U/L Alkaline Phosphatase 64 (46-116) U/L C-Reactive Protein (0.0-0.3) mg/dL Total Protein 6.4 (6.4-8.2) g/dL Albumin 2.8 L (3.4-5.0) g/dL Globulin 3.6 H (2.3-3.5) g/dL Albumin/Globulin Ratio 0.8 L (1.2-2.2) Procalcitonin ng/mL Urine Color (YELLOW) Urine Appearance (CLEAR) Urine pH (5.0-8.0) Ur Specific Cade (1.008-1.030) Urine Protein (NEGATIVE) mg/dL Urine Glucose (UA) (NEGATIVE) mg/dL Urine Ketones (NEGATIVE) mg/dL Urine Occult Blood (NEGATIVE) Urine Nitrite (NEGATIVE) Urine Bilirubin (NEGATIVE) Urine Urobilinogen (0.2-1.0) EU/dL Ur Leukocyte Esterase (NEGATIVE) Urine RBC (0-5) Urine WBC (0-5) Ur Epithelial Cells Amorphous Sediment Urine Bacteria Urine Mucus Urine Other Influenza Type A RNA (NEGATIVE) RSV RNA (INAAT) (NEGATIVE) Influenza Type B RNA (NEGATIVE) SARS-CoV-2 RNA (CHAMP) (NEGATIVE) 04/20/21 04/20/21 04/20/21 Range/Units 18:30 19:05 19:47 WBC (4.5-11.0) K/uL RBC (3.30-5.50) M/uL Hgb (12.0-15.0) g/dL Hct (36.0-48.0) % MCV (80-98) fL MCH (27-31) pg MCHC (32-36) % Plt Count (150-400) K/uL Neut % (Auto) (36-66) % Lymph % (Auto) (24-44) % [place] % (Auto) (2-6) % Eos % (Auto) (2-4) % Baso % (Auto) (0-1) % D-Dimer, Quantitative (0.0-500.0) ng/mL Sodium (140-148) mmol/L Potassium (3.6-5.2) mmol/L Chloride (100-108) mmol/L Carbon Dioxide (21-32) mmol/L Anion Gap (5.0-14.0) mmol/L BUN (7-18) mg/dL Creatinine (0.6-1.0) mg/dL Est Cr Clr Drug Dosing mL/min Estimated GFR (MDRD) (>60) Glucose (74-106) mg/dL POC Glucose (74-106) mg/dL Lactic Acid (0.4-2.0) mmol/L Calcium (8.5-10.1) mg/dL Total Bilirubin (0.2-1.0) mg/dL AST (15-37) U/L ALT (12-78) U/L Alkaline Phosphatase (46-116) U/L C-Reactive Protein (0.0-0.3) mg/dL Total Protein (6.4-8.2) g/dL Albumin (3.4-5.0) g/dL Globulin (2.3-3.5) g/dL Albumin/Globulin Ratio (1.2-2.2) Procalcitonin 0.06 ng/mL Urine Color Yellow (YELLOW) Urine Appearance Clear (CLEAR) Urine pH 5.5 (5.0-8.0) Ur Specific Cade 1.020 (1.008-1.030) Urine Protein 30 H (NEGATIVE) mg/dL Urine Glucose (UA) Negative (NEGATIVE) mg/dL Urine Ketones Negative (NEGATIVE) mg/dL Urine Occult Blood Trace-intact H (NEGATIVE) Urine Nitrite Negative (NEGATIVE) Urine Bilirubin Negative (NEGATIVE) Urine Urobilinogen 0.2 (0.2-1.0) EU/dL Ur Leukocyte Esterase Trace H (NEGATIVE) Urine RBC 0-5 (0-5) Urine WBC 10-20 H (0-5) Ur Epithelial Cells Few Amorphous Sediment Not seen Urine Bacteria Moderate Urine Mucus Rare Urine Other Influenza Type A RNA Negative (NEGATIVE) RSV RNA (INAAT) Negative (NEGATIVE) Influenza Type B RNA Negative (NEGATIVE) SARS-CoV-2 RNA (CHAMP) Positive H (NEGATIVE) 04/20/21 04/20/21 04/21/21 Range/Units 20:16 20:16 05:30 WBC 7.9 (4.5-11.0) K/uL RBC 4.10 (3.30-5.50) M/uL Hgb 12.1 (12.0-15.0) g/dL Hct 37.2 (36.0-48.0) % MCV 91 (80-98) fL MCH 30 (27-31) pg MCHC 33 (32-36) % Plt Count 227 (150-400) K/uL Neut % (Auto) (36-66) % Lymph % (Auto) (24-44) % [place] % (Auto) (2-6) % Eos % (Auto) (2-4) % Baso % (Auto) (0-1) % D-Dimer, Quantitative 2178.23 H (0.0-500.0) ng/mL Sodium (140-148) mmol/L Potassium (3.6-5.2) mmol/L Chloride (100-108) mmol/L Carbon Dioxide (21-32) mmol/L Anion Gap (5.0-14.0) mmol/L BUN (7-18) mg/dL Creatinine (0.6-1.0) mg/dL Est Cr Clr Drug Dosing mL/min Estimated GFR (MDRD) (>60) Glucose (74-106) mg/dL POC Glucose (74-106) mg/dL Lactic Acid (0.4-2.0) mmol/L Calcium (8.5-10.1) mg/dL Total Bilirubin (0.2-1.0) mg/dL AST (15-37) U/L ALT (12-78) U/L Alkaline Phosphatase (46-116) U/L C-Reactive Protein 13.24 H (0.0-0.3) mg/dL Total Protein (6.4-8.2) g/dL Albumin (3.4-5.0) g/dL Globulin (2.3-3.5) g/dL Albumin/Globulin Ratio (1.2-2.2) Procalcitonin ng/mL Urine Color (YELLOW) Urine Appearance (CLEAR) Urine pH (5.0-8.0) Ur Specific Cade (1.008-1.030) Urine Protein (NEGATIVE) mg/dL Urine Glucose (UA) (NEGATIVE) mg/dL Urine Ketones (NEGATIVE) mg/dL Urine Occult Blood (NEGATIVE) Urine Nitrite (NEGATIVE) Urine Bilirubin (NEGATIVE) Urine Urobilinogen (0.2-1.0) EU/dL Ur Leukocyte Esterase (NEGATIVE) Urine RBC (0-5) Urine WBC (0-5) Ur Epithelial Cells Amorphous Sediment Urine Bacteria Urine Mucus Urine Other Influenza Type A RNA (NEGATIVE) RSV RNA (INAAT) (NEGATIVE) Influenza Type B RNA (NEGATIVE) SARS-CoV-2 RNA (CHAMP) (NEGATIVE) 04/21/21 04/21/21 Range/Units 05:30 07:35 WBC (4.5-11.0) K/uL RBC (3.30-5.50) M/uL Hgb (12.0-15.0) g/dL Hct (36.0-48.0) % MCV (80-98) fL MCH (27-31) pg MCHC (32-36) % Plt Count (150-400) K/uL Neut % (Auto) (36-66) % Lymph % (Auto) (24-44) % [place] % (Auto) (2-6) % Eos % (Auto) (2-4) % Baso % (Auto) (0-1) % D-Dimer, Quantitative (0.0-500.0) ng/mL Sodium 140 (140-148) mmol/L Potassium 3.7 (3.6-5.2) mmol/L Chloride 101 (100-108) mmol/L Carbon Dioxide 28 (21-32) mmol/L Anion Gap 10.6 (5.0-14.0) mmol/L BUN 14 (7-18) mg/dL Creatinine 1.0 (0.6-1.0) mg/dL Est Cr Clr Drug Dosing 59.55 mL/min Estimated GFR (MDRD) 55 L (>60) Glucose 194 H (74-106) mg/dL POC Glucose 161 H (74-106) mg/dL Lactic Acid (0.4-2.0) mmol/L Calcium 8.0 L (8.5-10.1) mg/dL Total Bilirubin 0.5 (0.2-1.0) mg/dL AST 42 H (15-37) U/L ALT 22 (12-78) U/L Alkaline Phosphatase 64 (46-116) U/L C-Reactive Protein (0.0-0.3) mg/dL Total Protein 6.4 (6.4-8.2) g/dL Albumin 2.6 L (3.4-5.0) g/dL Globulin 3.8 H (2.3-3.5) g/dL Albumin/Globulin Ratio 0.7 L (1.2-2.2) Procalcitonin ng/mL Urine Color (YELLOW) Urine Appearance (CLEAR) Urine pH (5.0-8.0) Ur Specific Cade (1.008-1.030) Urine Protein (NEGATIVE) mg/dL Urine Glucose (UA) (NEGATIVE) mg/dL Urine Ketones (NEGATIVE) mg/dL Urine Occult Blood (NEGATIVE) Urine Nitrite (NEGATIVE) Urine Bilirubin (NEGATIVE) Urine Urobilinogen (0.2-1.0) EU/dL Ur Leukocyte Esterase (NEGATIVE) Urine RBC (0-5) Urine WBC (0-5) Ur Epithelial Cells Amorphous Sediment Urine Bacteria Urine Mucus Urine Other Influenza Type A RNA (NEGATIVE) RSV RNA (INAAT) (NEGATIVE) Influenza Type B RNA (NEGATIVE) SARS-CoV-2 RNA (CHAMP) (NEGATIVE) Result Diagrams: 04/21/21 05:30 04/21/21 05:30 Sepsis Event Note - Evaluation Sepsis Screening Result: No Definite Risk - Focused Exam Vital Signs: Vital Signs Temp Temp Pulse Resp BP Pulse Ox 04/21/21 11:00 35.3 C L 72 18 116/62 93 L 04/21/21 09:54 91 L 04/21/21 07:15 92 L 04/21/21 07:00 35.4 C L 71 18 133/64 97 04/21/21 03:26 35.4 C L 04/21/21 01:00 93 L 04/20/21 23:20 37.3 C - Problem List & Annotations (1) Pneumonia due to COVID-19 virus SNOMED Code(s): 433712672217556039 Code(s): U07.1 - COVID-19; J12.82 - PNEUMONIA DUE TO CORONAVIRUS DISEASE 2018 Status: Acute Current Visit: Yes (2) Acute respiratory failure due to COVID-19 SNOMED Code(s): 965031029 Code(s): U07.1 - COVID-19; J96.00 - ACUTE RESPIRATORY FAILURE, UNSP W HYPOXIA OR HYPERCAPNIA Status: Acute Current Visit: Yes (3) Urinary tract infection SNOMED Code(s): 76434941 Code(s): N39.0 - URINARY TRACT INFECTION, SITE NOT SPECIFIED Status: Acute Priority: High Current Visit: Yes Qualifiers: Urinary tract infection type: site unspecified Hematuria presence: without hematuria Qualified Code(s): N39.0 - Urinary tract infection, site not specified (4) Type 2 diabetes mellitus SNOMED Code(s): 38524718 Code(s): E11.9 - TYPE 2 DIABETES MELLITUS WITHOUT COMPLICATIONS Status: Chronic Current Visit: Yes Qualifiers: Diabetes mellitus intermodal dispatcher insulin use: without intermodal dispatcher use Diabetes mellitus complication status: with other specified complication Qualified Code(s): E11.69 - Type 2 diabetes mellitus with other specified complication - Problem List Review Problem List Initiated/Reviewed/Updated: Yes - My Orders Last 24 Hours: My Active Orders 04/20/21 Dinner Consistent Carbohydrate Diet [DIET] 04/20/21 20:58 CULTURE URINE [RM] Stat Resuscitation Status Routine 04/20/21 21:51 Acetaminophen [TylenoL] 650 mg PO Q4H PRN Albuterol [Ventolin HFA] 0 gm INH Q4H PRN Benzonatate [Tessalon Perles] 100 mg PO TID PRN Dextromethorphan/guaiFENesin [Robitussin DM] 10 ml PO Q4H PRN Docusate Sodium/Sennosides [Senna Plus] 1 tab PO BID PRN LORazepam [Ativan] 0.5 mg IVPUSH Q4H PRN Lactobacillus Rhamnosus GG [Culturelle] 1 cap PO BID Magnesium Hydroxide [Milk of Magnesia] 30 ml PO Q12H PRN Melatonin 9 mg PO BEDTIME Naltrexone HCl/Bupropion HCl [Contrave ER 8-90 mg Tablet] 2 tab PO BID Ondansetron [Zofran ODT] 4 mg PO Q6H PRN Ondansetron [Zofran] 4 mg IV Q6H PRN 04/20/21 21:51 Patient Status [ADT] Routine Communication Order [RC] PRN Communication Order [RC] PRN Diabetes Education [RC] Click to Edit Intake and Output [RC] QSHIFT Notify Provider Vital Signs [RC] ASDIRECTED Notify Provider [RC] PRN Nurse Communication: Isolation [RC] ASDIRECTED Oxygen Therapy [RC] PRN Pulse Oximetry [RC] CONTINUOUS RT Post Treatment Assessment [RC] Click to Edit Up With Assistance [RC] ASDIRECTED VTE/DVT Education [RC] Per Unit Routine Vital Signs [RC] Q4H Isolation [COMM] Routine 04/20/21 22:00 Enoxaparin [Lovenox] 40 mg SUBCUT Q24H cefTRIAXone [Rocephin] 1 gm Sodium Chloride 0.9% [Normal Saline] 50 ml IV Q24H dexAMETHasone [Decadron] 6 mg IVPUSH Q24H 04/21/21 07:00 Insulin Lispro [HumaLOG] See Protocol SUBCUT QIDACANDBED 04/21/21 07:30 metFORMIN [Glucophage] 1,000 mg PO BIDAC 04/21/21 09:00 Aspirin 81 mg PO DAILY Cyanocobalamin (Vitamin B12) [Vitamin B12] 1,000 mcg PO DAILY Naltrexone [Naltrexone] 25 mg PO DAILY Pregabalin [Lyrica] 150 mg PO BID 04/21/21 11:30 GLUCOSE POC LAB TO COLLECT JPM [POC] QIDACANDBED 04/21/21 16:30 GLUCOSE POC LAB TO COLLECT JPM [POC] QIDACANDBED 04/21/21 21:00 GLUCOSE POC LAB TO COLLECT JPM [POC] QIDACANDBED Remdesivir 100 mg Sodium Chloride 0.9% [Normal Saline] 100 ml IV Q24H atorvaSTATin [Lipitor] 20 mg PO BEDTIME 04/22/21 05:11 C-REACTIVE PROTEIN [CHEM] AM CBC W/O DIFF,HEMOGRAM [HEME] AM COMPREHENSIVE METABOLIC PN,CMP [CHEM] AM D-DIMER QUANTITATIVE [COAG] AM 04/22/21 07:30 GLUCOSE POC LAB TO COLLECT JPM [POC] QIDACANDBED 04/22/21 11:30 GLUCOSE POC LAB TO COLLECT JPM [POC] QIDACANDBED 04/22/21 16:30 GLUCOSE POC LAB TO COLLECT JPM [POC] QIDACANDBED 04/22/21 21:00 GLUCOSE POC LAB TO COLLECT JPM [POC] QIDACANDBED 04/23/21 07:30 GLUCOSE POC LAB TO COLLECT JPM [POC] QIDACANDBED 04/23/21 11:30 GLUCOSE POC LAB TO COLLECT JPM [POC] QIDACANDBED 04/23/21 16:30 GLUCOSE POC LAB TO COLLECT JPM [POC] QIDACANDBED 04/23/21 21:00 GLUCOSE POC LAB TO COLLECT JPM [POC] QIDACANDBED 04/24/21 07:30 GLUCOSE POC LAB TO COLLECT JPM [POC] QIDACANDBED 04/24/21 11:30 GLUCOSE POC LAB TO COLLECT JPM [POC] QIDACANDBED 04/24/21 16:30 GLUCOSE POC LAB TO COLLECT JPM [POC] QIDACANDBED 04/24/21 21:00 GLUCOSE POC LAB TO COLLECT JPM [POC] QIDACANDBED 04/25/21 07:30 GLUCOSE POC LAB TO COLLECT JPM [POC] QIDACANDBED 04/25/21 11:30 GLUCOSE POC LAB TO COLLECT JPM [POC] QIDACANDBED 04/25/21 16:30 GLUCOSE POC LAB TO COLLECT JPM [POC] QIDACANDBED 04/25/21 21:00 GLUCOSE POC LAB TO COLLECT JPM [POC] QIDACANDBED 04/26/21 07:30 GLUCOSE POC LAB TO COLLECT JPM [POC] QIDACANDBED 04/26/21 11:30 GLUCOSE POC LAB TO COLLECT JPM [POC] QIDACANDBED - Plan Plan:: ASSESSMENT AND PLAN - COVID-19 pneumonia-complicated by acute respiratory failure with hypoxia. Stable to slightly improved since admission. Oxygenation stable. Tolerating treatment so far. -Dexamethasone 6 mg daily (2) -Remdesivir 200 mg x 1 and then daily x4 -Enoxaparin 40 mg daily -Supplement oxygen -As needed albuterol inhaler -Repeat labs every 2 to 3 days unless clinically changing -Isolation precautions Acute cystitis without hematuria-UTI could explain some of her confusion. No evidence for sepsis. -Ceftriaxone -Follow-up urine culture Type 2 diabetes mellitus-controlled so far. -Continue home medications -Sliding scale insulin Chronic pain-stable so far. -Continue home medications (family sent in her home medications) Maintenance issues - -DVT prophylaxis-enoxaparin -GI prophylaxis-not indicated -Nutrition-diabetic Disposition -I anticipate discharge home after the hospital stay Todd Cole M.D.
[2021-04-21] MEDS: NALTREXONE 50 MG PO SCH (12:13)
[2021-04-21] MEDS: CONTRAVE PO SCH ×2 (12:13→20:18)
[2021-04-21] MEDS: Melatonin 3 MG Tab PO SCH (20:18)
[2021-04-21] MEDS: atorvaSTATin 20 MG Tab PO SCH (20:18)
[2021-04-21] MEDS: REMDESIVIR 100 MG in Sodium Chloride 0.9% 100 ML IV SCH (20:36)
[2021-04-21] MEDS: cefTRIAXone 1 GM in Sodium Chloride 0.9% 50 ML IV SCH (22:00)
[2021-04-21] MEDS: Dexamethasone 4 MG/ML SDV IVPUSH SCH (22:01)
[2021-04-21] MEDS: Enoxaparin 40 MG/0.4 ML Syringe SUBCUT SCH (22:02)
[2021-04-22] MEDS: Insulin Lispro 100 Unit/ML 3 ML KwikPen SUBCUT SCH ×4 (08:27→21:20)
[2021-04-22] MEDS: Lactobacillus Rhamnosus GG (Probiotic) Cap PO SCH ×2 (08:29→20:42)
[2021-04-22] MEDS: Aspirin 81 MG Tab.Chew PO SCH (08:29)
[2021-04-22] MEDS: metFORMIN 500 MG Tab PO SCH ×2 (08:29→17:04)
[2021-04-22] MEDS: NALTREXONE 50 MG PO SCH (08:30)
[2021-04-22] MEDS: Cyanocobalamin (Vitamin B12) 1,000 MCG Tab PO SCH (08:30)
[2021-04-22] MEDS: CONTRAVE PO SCH ×2 (08:30→20:43)
[2021-04-22] MEDS: Pregabalin 75 MG Cap PO SCH ×2 (08:51→20:49)
--- NOTE | 2021-04-22 12:16 | PCM.PN ---
- General Info Date of Service: 04/22/21 Subjective Update: No acute events overnight. Patient reports that she is feeling fairly well today. A little bit weak and a little bit tired. No sense of taste as of yet so appetite has not been very good. She does not feel short of breath and did not report feeling winded with ambulation but did desaturate without any supplemental oxygen. Saturations are good with 1 L of supplemental oxygen. Inflammatory markers are stable. She is not having any fevers. Blood sugars mildly elevated but fairly well controlled. Functional Status: Reports: Pain Controlled, Tolerating Diet - Review of Systems General: Reports: Weakness Pulmonary: Denies: Shortness of Breath Gastrointestinal: Denies: Diarrhea - Patient Data Vitals - Most Recent: Last Vital Signs Temp 35.5 C L 04/22/21 11:01 Pulse 76 04/22/21 11:01 Resp 16 04/22/21 11:01 BP 114/64 04/22/21 11:01 Pulse Ox 91 L 04/22/21 11:01 Weight - Most Recent: 108.862 kg I&O - Last 24 Hours: Intake & Output 04/21/21 04/22/21 04/22/21 22:59 06:59 14:59 Intake Total 1200 Balance 1200 Lab Results Last 24 Hours: Laboratory Results - last 24 hr 04/21/21 04/21/21 04/21/21 Range/Units 16:29 21:00 21:02 WBC (4.5-11.0) K/uL RBC (3.30-5.50) M/uL Hgb (12.0-15.0) g/dL Hct (36.0-48.0) % MCV (80-98) fL MCH (27-31) pg MCHC (32-36) % Plt Count (150-400) K/uL D-Dimer, Quantitative (0.0-500.0) ng/mL Sodium (140-148) mmol/L Potassium (3.6-5.2) mmol/L Chloride (100-108) mmol/L Carbon Dioxide (21-32) mmol/L Anion Gap (5.0-14.0) mmol/L BUN (7-18) mg/dL Creatinine (0.6-1.0) mg/dL Est Cr Clr Drug Dosing mL/min Estimated GFR (MDRD) (>60) Glucose (74-106) mg/dL POC Glucose 128 H 151 H 151 H (74-106) mg/dL Calcium (8.5-10.1) mg/dL Total Bilirubin (0.2-1.0) mg/dL AST (15-37) U/L ALT (12-78) U/L Alkaline Phosphatase (46-116) U/L C-Reactive Protein (0.0-0.3) mg/dL Total Protein (6.4-8.2) g/dL Albumin (3.4-5.0) g/dL Globulin (2.3-3.5) g/dL Albumin/Globulin Ratio (1.2-2.2) 04/22/21 04/22/21 04/22/21 Range/Units 05:00 05:00 05:00 WBC 9.5 (4.5-11.0) K/uL RBC 4.20 (3.30-5.50) M/uL Hgb 12.4 (12.0-15.0) g/dL Hct 38.1 (36.0-48.0) % MCV 91 (80-98) fL MCH 30 (27-31) pg MCHC 33 (32-36) % Plt Count 263 (150-400) K/uL D-Dimer, Quantitative 1437.51 H (0.0-500.0) ng/mL Sodium 141 (140-148) mmol/L Potassium 4.0 (3.6-5.2) mmol/L Chloride 101 (100-108) mmol/L Carbon Dioxide 28 (21-32) mmol/L Anion Gap 12.1 (5.0-14.0) mmol/L BUN 17 (7-18) mg/dL Creatinine 1.1 H (0.6-1.0) mg/dL Est Cr Clr Drug Dosing 54.13 mL/min Estimated GFR (MDRD) 49 L (>60) Glucose 186 H (74-106) mg/dL POC Glucose (74-106) mg/dL Calcium 8.0 L (8.5-10.1) mg/dL Total Bilirubin 0.4 (0.2-1.0) mg/dL AST 38 H (15-37) U/L ALT 25 (12-78) U/L Alkaline Phosphatase 62 (46-116) U/L C-Reactive Protein 20.23 H (0.0-0.3) mg/dL Total Protein 6.5 (6.4-8.2) g/dL Albumin 2.6 L (3.4-5.0) g/dL Globulin 3.9 H (2.3-3.5) g/dL Albumin/Globulin Ratio 0.7 L (1.2-2.2) 04/22/21 04/22/21 Range/Units 07:46 11:23 WBC (4.5-11.0) K/uL RBC (3.30-5.50) M/uL Hgb (12.0-15.0) g/dL Hct (36.0-48.0) % MCV (80-98) fL MCH (27-31) pg MCHC (32-36) % Plt Count (150-400) K/uL D-Dimer, Quantitative (0.0-500.0) ng/mL Sodium (140-148) mmol/L Potassium (3.6-5.2) mmol/L Chloride (100-108) mmol/L Carbon Dioxide (21-32) mmol/L Anion Gap (5.0-14.0) mmol/L BUN (7-18) mg/dL Creatinine (0.6-1.0) mg/dL Est Cr Clr Drug Dosing mL/min Estimated GFR (MDRD) (>60) Glucose (74-106) mg/dL POC Glucose 166 H 163 H (74-106) mg/dL Calcium (8.5-10.1) mg/dL Total Bilirubin (0.2-1.0) mg/dL AST (15-37) U/L ALT (12-78) U/L Alkaline Phosphatase (46-116) U/L C-Reactive Protein (0.0-0.3) mg/dL Total Protein (6.4-8.2) g/dL Albumin (3.4-5.0) g/dL Globulin (2.3-3.5) g/dL Albumin/Globulin Ratio (1.2-2.2) Jayson Results Last 24 Hours: Microbiology 04/20/21 20:58 Urine Culture - Preliminary Urine, Clean Catch MIXED POSITIVE JANELLE DAY 04/20/21 19:47 Urine Culture - Preliminary Urine, Voided MIXED POSITIVE JANELLE DAY 04/20/21 18:05 Aerobic Blood Culture - Preliminary Blood - Arm, Left NO GROWTH AFTER 1 DAY Anaerobic Blood Culture - Preliminary NO GROWTH AFTER 1 DAY 04/20/21 18:15 Aerobic Blood Culture - Preliminary Blood - Arm, Left NO GROWTH AFTER 1 DAY Anaerobic Blood Culture - Preliminary NO GROWTH AFTER 1 DAY Med Orders - Current: Current Medications Acetaminophen (Acetaminophen 325 Mg Tab) 650 mg PO Q4H PRN PRN Reason: Pain (Mild 1-3)/fever Last Admin: 04/20/21 22:50 Dose: 650 mg Documented by: Albuterol (Albuterol 8 Gm Inhaler) 0 gm INH Q4H PRN PRN Reason: shortness of breath/wheezing Aspirin (Aspirin 81 Mg Tab.Chew) 81 mg PO DAILY [facility] Last Admin: 04/22/21 08:29 Dose: 81 mg Documented by: Atorvastatin Calcium (Atorvastatin 20 Mg Tab) 20 mg PO BEDTIME [facility] Last Admin: 04/21/21 20:18 Dose: 20 mg Documented by: Benzonatate (Benzonatate 100 Mg Cap) 100 mg PO TID PRN PRN Reason: Cough Cyanocobalamin (Cyanocobalamin (Vitamin B12) 1,000 Mcg Tab) 1,000 mcg PO DAILY [facility] Last Admin: 04/22/21 08:30 Dose: 1,000 mcg Documented by: Dexamethasone (Dexamethasone 4 Mg/Ml Sdv) 6 mg IVPUSH Q24H [facility] Last Admin: 04/21/21 22:01 Dose: 6 mg Documented by: Enoxaparin Sodium (Enoxaparin 40 Mg/0.4 Ml Syringe) 40 mg SUBCUT Q24H [facility] Last Admin: 04/21/21 22:02 Dose: 40 mg Documented by: Guaifenesin/Dextromethorphan (Guaifenesin/Dextromethorphan 100-10 Mg/5 Ml Soln 10 Ml Cup) 10 ml PO Q4H PRN PRN Reason: Cough Remdesivir 100 mg/ Sodium (Chloride) 100 mls @ 100 mls/hr IV Q24H [facility] Stop: 04/24/21 21:59 Last Admin: 04/21/21 20:36 Dose: 100 mls/hr Documented by: Ceftriaxone Sodium 1 gm/ (Sodium Chloride) 50 mls @ 100 mls/hr IV Q24H [facility] Stop: 04/22/21 22:29 Last Admin: 04/21/21 22:00 Dose: 100 mls/hr Documented by: Insulin Human Lispro (Insulin Lispro 100 Unit/Ml 3 Ml Kwikpen) 0 unit SUBCUT QIDACANDBED [facility]; Protocol Last Admin: 04/22/21 08:27 Dose: 2 units Documented by: Lactobacillus Rhamnosus (Lactobacillus Rhamnosus Gg (Probiotic) Cap) 1 cap PO BID [facility] Last Admin: 04/22/21 08:29 Dose: 1 cap Documented by: Lorazepam (Lorazepam 2 Mg/Ml Sdv) 0.5 mg IVPUSH Q4H PRN PRN Reason: Nausea/Vomiting Magnesium Hydroxide (Magnesium Hydroxide 400 Mg/5 Ml Susp 30 Ml Cup) 30 ml PO Q12H PRN PRN Reason: Constipation Melatonin (Melatonin 3 Mg Tab) 9 mg PO BEDTIME [facility] Last Admin: 04/21/21 20:18 Dose: 9 mg Documented by: Metformin HCl (Metformin 500 Mg Tab) 1,000 mg PO BIDAC [facility] Last Admin: 04/22/21 08:29 Dose: 1,000 mg Documented by: Naltrexone 50 Mg (Tablet Ptom) 0 mg PO DAILY [facility] Last Admin: 04/22/21 08:30 Dose: 25 mg Documented by: Contrave Er 8-90 Mg (Ptom) 0 tab PO BID [facility] Last Admin: 04/22/21 08:30 Dose: 2 tab Documented by: Ondansetron HCl (Ondansetron 4 Mg/2 Ml Sdv) 4 mg IV Q6H PRN PRN Reason: Nausea/Vomiting Ondansetron HCl (Ondansetron 4 Mg Tab.Dis) 4 mg PO Q6H PRN PRN Reason: Nausea able to take PO Pregabalin (Pregabalin 75 Mg Cap) 150 mg PO BID [facility] Last Admin: 04/22/21 08:51 Dose: 150 mg Documented by: Senna/Docusate Sodium (Docusate Sodium/Sennosides 50-8.6 Mg Tab) 1 tab PO BID PRN PRN Reason: Constipation Sodium Chloride (Sodium Chloride 0.9% 10 Ml Syringe) 10 ml FLUSH ASDIRECTED PRN PRN Reason: Keep Vein Open Last Admin: 04/20/21 18:32 Dose: 10 ml Documented by: Discontinued Medications Remdesivir 200 mg/ Sodium (Chloride) 250 mls @ 250 mls/hr IV ONETIME ONE Stop: 04/20/21 21:52 Last Admin: 04/20/21 23:43 Dose: 250 mls/hr Documented by: - Exam Quality Assessment: Supplemental Oxygen General: Alert, Oriented, Cooperative, No Acute Distress Lungs: Normal Respiratory Effort GI/Abdominal Exam: Soft, No Distention Extremities: No Pedal Edema Skin: Warm, Dry Psy/Mental Status: Alert, Normal Affect - Patient Data Lab Results Last 24 hrs: Laboratory Results - last 24 hr 04/21/21 04/21/21 04/21/21 Range/Units 16:29 21:00 21:02 WBC (4.5-11.0) K/uL RBC (3.30-5.50) M/uL Hgb (12.0-15.0) g/dL Hct (36.0-48.0) % MCV (80-98) fL MCH (27-31) pg MCHC (32-36) % Plt Count (150-400) K/uL D-Dimer, Quantitative (0.0-500.0) ng/mL Sodium (140-148) mmol/L Potassium (3.6-5.2) mmol/L Chloride (100-108) mmol/L Carbon Dioxide (21-32) mmol/L Anion Gap (5.0-14.0) mmol/L BUN (7-18) mg/dL Creatinine (0.6-1.0) mg/dL Est Cr Clr Drug Dosing mL/min Estimated GFR (MDRD) (>60) Glucose (74-106) mg/dL POC Glucose 128 H 151 H 151 H (74-106) mg/dL Calcium (8.5-10.1) mg/dL Total Bilirubin (0.2-1.0) mg/dL AST (15-37) U/L ALT (12-78) U/L Alkaline Phosphatase (46-116) U/L C-Reactive Protein (0.0-0.3) mg/dL Total Protein (6.4-8.2) g/dL Albumin (3.4-5.0) g/dL Globulin (2.3-3.5) g/dL Albumin/Globulin Ratio (1.2-2.2) 04/22/21 04/22/21 04/22/21 Range/Units 05:00 05:00 05:00 WBC 9.5 (4.5-11.0) K/uL RBC 4.20 (3.30-5.50) M/uL Hgb 12.4 (12.0-15.0) g/dL Hct 38.1 (36.0-48.0) % MCV 91 (80-98) fL MCH 30 (27-31) pg MCHC 33 (32-36) % Plt Count 263 (150-400) K/uL D-Dimer, Quantitative 1437.51 H (0.0-500.0) ng/mL Sodium 141 (140-148) mmol/L Potassium 4.0 (3.6-5.2) mmol/L Chloride 101 (100-108) mmol/L Carbon Dioxide 28 (21-32) mmol/L Anion Gap 12.1 (5.0-14.0) mmol/L BUN 17 (7-18) mg/dL Creatinine 1.1 H (0.6-1.0) mg/dL Est Cr Clr Drug Dosing 54.13 mL/min Estimated GFR (MDRD) 49 L (>60) Glucose 186 H (74-106) mg/dL POC Glucose (74-106) mg/dL Calcium 8.0 L (8.5-10.1) mg/dL Total Bilirubin 0.4 (0.2-1.0) mg/dL AST 38 H (15-37) U/L ALT 25 (12-78) U/L Alkaline Phosphatase 62 (46-116) U/L C-Reactive Protein 20.23 H (0.0-0.3) mg/dL Total Protein 6.5 (6.4-8.2) g/dL Albumin 2.6 L (3.4-5.0) g/dL Globulin 3.9 H (2.3-3.5) g/dL Albumin/Globulin Ratio 0.7 L (1.2-2.2) 04/22/21 04/22/21 Range/Units 07:46 11:23 WBC (4.5-11.0) K/uL RBC (3.30-5.50) M/uL Hgb (12.0-15.0) g/dL Hct (36.0-48.0) % MCV (80-98) fL MCH (27-31) pg MCHC (32-36) % Plt Count (150-400) K/uL D-Dimer, Quantitative (0.0-500.0) ng/mL Sodium (140-148) mmol/L Potassium (3.6-5.2) mmol/L Chloride (100-108) mmol/L Carbon Dioxide (21-32) mmol/L Anion Gap (5.0-14.0) mmol/L BUN (7-18) mg/dL Creatinine (0.6-1.0) mg/dL Est Cr Clr Drug Dosing mL/min Estimated GFR (MDRD) (>60) Glucose (74-106) mg/dL POC Glucose 166 H 163 H (74-106) mg/dL Calcium (8.5-10.1) mg/dL Total Bilirubin (0.2-1.0) mg/dL AST (15-37) U/L ALT (12-78) U/L Alkaline Phosphatase (46-116) U/L C-Reactive Protein (0.0-0.3) mg/dL Total Protein (6.4-8.2) g/dL Albumin (3.4-5.0) g/dL Globulin (2.3-3.5) g/dL Albumin/Globulin Ratio (1.2-2.2) Result Diagrams: 04/22/21 05:00 04/22/21 05:00 Jayson Results Last 24 hrs: Microbiology 04/20/21 20:58 Urine Culture - Preliminary Urine, Clean Catch MIXED POSITIVE JANELLE DAY 04/20/21 19:47 Urine Culture - Preliminary Urine, Voided MIXED POSITIVE JANELLE DAY 1 04/20/21 18:05 Aerobic Blood Culture - Preliminary Blood - Arm, Left NO GROWTH AFTER 1 DAY Anaerobic Blood Culture - Preliminary NO GROWTH AFTER 1 DAY 04/20/21 18:15 Aerobic Blood Culture - Preliminary Blood - Arm, Left NO GROWTH AFTER 1 DAY Anaerobic Blood Culture - Preliminary NO GROWTH AFTER 1 DAY Sepsis Event Note - Evaluation Sepsis Screening Result: No Definite Risk - Focused Exam Vital Signs: Vital Signs Temp Pulse Resp BP Pulse Ox Pulse Ox 04/22/21 11:01 35.5 C L 76 16 114/64 91 L 04/22/21 10:44 94 L 04/22/21 10:04 94 L 04/22/21 09:33 96 04/22/21 08:00 35.3 C L 75 18 90 L 04/22/21 07:41 95 04/22/21 01:24 93 L 04/22/21 00:52 92 L - Problem List & Annotations (1) Pneumonia due to COVID-19 virus SNOMED Code(s): 788590029843820435 Code(s): U07.1 - COVID-19; J12.82 - PNEUMONIA DUE TO CORONAVIRUS DISEASE 2019 Status: Acute Current Visit: Yes (2) Acute respiratory failure due to COVID-19 SNOMED Code(s): 233704383 Code(s): U07.1 - COVID-19; J96.00 - ACUTE RESPIRATORY FAILURE, UNSP W HYPOXIA OR HYPERCAPNIA Status: Acute Current Visit: Yes (3) Urinary tract infection SNOMED Code(s): 33092495 Code(s): N39.0 - URINARY TRACT INFECTION, SITE NOT SPECIFIED Status: Acute Priority: High Current Visit: Yes Qualifiers: Urinary tract infection type: site unspecified Hematuria presence: without hematuria Qualified Code(s): N39.0 - Urinary tract infection, site not specified (4) Type 2 diabetes mellitus SNOMED Code(s): 51434623 Code(s): E11.9 - TYPE 2 DIABETES MELLITUS WITHOUT COMPLICATIONS Status: Chronic Current Visit: Yes Qualifiers: Diabetes mellitus manager long term care insulin use: without correction use Diabetes mellitus complication status: with other specified complication Qualified Code(s): E11.69 - Type 2 diabetes mellitus with other specified complication - Problem List Review Problem List Initiated/Reviewed/Updated: Yes - My Orders Last 24 Hours: My Active Orders 04/21/21 12:00 Naltrexone HCl/Bupropion HCl [Contrave ER 8-90 mg Tablet] 0 tab PO BID Naltrexone [Naltrexone] 0 mg PO DAILY 04/21/21 21:00 Remdesivir 100 mg Sodium Chloride 0.9% [Normal Saline] 100 ml IV Q24H atorvaSTATin [Lipitor] 20 mg PO BEDTIME 04/22/21 16:30 GLUCOSE POC LAB TO COLLECT JPM [POC] QIDACANDBED 04/22/21 21:00 GLUCOSE POC LAB TO COLLECT JPM [POC] QIDACANDBED 04/23/21 07:30 GLUCOSE POC LAB TO COLLECT JPM [POC] QIDACANDBED 04/23/21 11:30 GLUCOSE POC LAB TO COLLECT JPM [POC] QIDACANDBED 04/23/21 16:30 GLUCOSE POC LAB TO COLLECT JPM [POC] QIDACANDBED 04/23/21 21:00 GLUCOSE POC LAB TO COLLECT JPM [POC] QIDACANDBED 04/24/21 07:30 GLUCOSE POC LAB TO COLLECT JPM [POC] QIDACANDBED 04/24/21 11:30 GLUCOSE POC LAB TO COLLECT JPM [POC] QIDACANDBED 04/24/21 16:30 GLUCOSE POC LAB TO COLLECT JPM [POC] QIDACANDBED 04/24/21 21:00 GLUCOSE POC LAB TO COLLECT JPM [POC] QIDACANDBED 04/25/21 07:30 GLUCOSE POC LAB TO COLLECT JPM [POC] QIDACANDBED 04/25/21 11:30 GLUCOSE POC LAB TO COLLECT JPM [POC] QIDACANDBED 04/25/21 16:30 GLUCOSE POC LAB TO COLLECT JPM [POC] QIDACANDBED 04/25/21 21:00 GLUCOSE POC LAB TO COLLECT JPM [POC] QIDACANDBED 04/26/21 07:30 GLUCOSE POC LAB TO COLLECT JPM [POC] QIDACANDBED 04/26/21 11:30 GLUCOSE POC LAB TO COLLECT JPM [POC] QIDACANDBED - Plan Plan:: ASSESSMENT AND PLAN - COVID-19 pneumonia-complicated by acute respiratory failure with hypoxia. Slowly improving. Oxygenation improving. Still requiring supplemental oxygen but overall doing fairly well. -Dexamethasone 6 mg daily (3) -Remdesivir 200 mg x 1 and then daily x4 -Enoxaparin 40 mg daily -Supplement oxygen -As needed albuterol inhaler -Repeat labs every 2 to 3 days unless clinically changing -Isolation precautions Acute cystitis without hematuria-UTI could explain some of her confusion. Urine culture growing mixed janelle today. Plan to continue antibiotics 1 more day but can discontinue if still negative tomorrow. -Ceftriaxone -Follow-up urine culture Type 2 diabetes mellitus-controlled so far. -Continue home medications -Sliding scale insulin Chronic pain-stable so far. -Continue home medications (family sent in her home medications) Maintenance issues - -DVT prophylaxis-enoxaparin -GI prophylaxis-not indicated -Nutrition-diabetic Disposition -I anticipate discharge home after the hospital stay, possibly as early as tomorrow if she is able to wean off the supplemental oxygen Todd Cole M.D.
[2021-04-22] MEDS: Melatonin 3 MG Tab PO SCH (20:40)
[2021-04-22] MEDS: Dexamethasone 4 MG/ML SDV IVPUSH SCH ×2 (20:40→21:58)
[2021-04-22] MEDS: Enoxaparin 40 MG/0.4 ML Syringe SUBCUT SCH ×2 (20:42→21:58)
[2021-04-22] MEDS: atorvaSTATin 20 MG Tab PO SCH (20:42)
[2021-04-22] MEDS: REMDESIVIR 100 MG in Sodium Chloride 0.9% 100 ML IV SCH (20:50)
[2021-04-22] MEDS: cefTRIAXone 1 GM in Sodium Chloride 0.9% 50 ML IV SCH (21:56)
[2021-04-23] MEDS: Insulin Lispro 100 Unit/ML 3 ML KwikPen SUBCUT SCH ×4 (07:53→21:24)
[2021-04-23] MEDS: metFORMIN 500 MG Tab PO SCH ×2 (07:54→17:09)
[2021-04-23] MEDS: Lactobacillus Rhamnosus GG (Probiotic) Cap PO SCH ×2 (08:01→21:45)
[2021-04-23] MEDS: Aspirin 81 MG Tab.Chew PO SCH (08:01)
[2021-04-23] MEDS: Cyanocobalamin (Vitamin B12) 1,000 MCG Tab PO SCH (08:01)
[2021-04-23] MEDS: CONTRAVE PO SCH ×2 (08:01→21:46)
[2021-04-23] MEDS: NALTREXONE 50 MG PO SCH (08:02)
[2021-04-23] MEDS: Pregabalin 75 MG Cap PO SCH ×2 (08:04→22:02)
--- NOTE | 2021-04-23 11:07 | PCM.PN ---
- General Info Date of Service: 04/23/21 Subjective Update: Ms. Smart has continued to require supplemental oxygen. Requirements have ranged from 1 to 4 L/min via nasal cannula. She denies subjective shortness of breath and cough. Vital signs have remained stable and she has been afebrile. Appetite is returning as is her sense of smell and taste. Functional Status: Reports: Tolerating Diet, Ambulating, Urinating - Review of Systems General: Reports: Weakness, Fatigue. Denies: Fever, Chills Pulmonary: Reports: No Symptoms Cardiovascular: Reports: No Symptoms Gastrointestinal: Reports: No Symptoms - Patient Data Vitals - Most Recent: Last Vital Signs Temp 97.2 F 04/23/21 07:00 Pulse 65 04/23/21 07:00 Resp 18 04/23/21 07:00 BP 151/79 H 04/23/21 07:00 Pulse Ox 94 L 04/23/21 09:00 Weight - Most Recent: 239 lb 15.994 oz I&O - Last 24 Hours: Intake & Output 04/22/21 04/23/21 04/23/21 22:59 06:59 14:59 Intake Total 150 420 Output Total 500 1000 Balance -500 150 -580 Lab Results Last 24 Hours: Laboratory Results - last 24 hr 04/22/21 04/22/21 04/22/21 Range/Units 11:23 16:39 21:00 POC Glucose 163 H 141 H 135 H (74-106) mg/dL 04/23/21 Range/Units 07:20 POC Glucose 166 H (74-106) mg/dL Jayson Results Last 24 Hours: Microbiology 04/20/21 20:58 Urine Culture - Final Urine, Clean Catch MIXED POSITIVE JANELLE DAY 2 04/20/21 19:47 Urine Culture - Final Urine, Voided MIXED POSITIVE JANELLE DAY 2 04/20/21 18:05 Aerobic Blood Culture - Preliminary Blood - Arm, Left NO GROWTH AFTER 2 DAYS Anaerobic Blood Culture - Preliminary NO GROWTH AFTER 2 DAYS 04/20/21 18:15 Aerobic Blood Culture - Preliminary Blood - Arm, Left NO GROWTH AFTER 2 DAYS Anaerobic Blood Culture - Preliminary NO GROWTH AFTER 2 DAYS Med Orders - Current: Current Medications Acetaminophen (Acetaminophen 325 Mg Tab) 650 mg PO Q4H PRN PRN Reason: Pain (Mild 1-3)/fever Last Admin: 04/20/21 22:50 Dose: 650 mg Documented by: Albuterol (Albuterol 8 Gm Inhaler) 0 gm INH Q4H PRN PRN Reason: shortness of breath/wheezing Aspirin (Aspirin 81 Mg Tab.Chew) 81 mg PO DAILY [facility] Last Admin: 04/23/21 08:01 Dose: 81 mg Documented by: Atorvastatin Calcium (Atorvastatin 20 Mg Tab) 20 mg PO BEDTIME [facility] Last Admin: 04/22/21 20:42 Dose: 20 mg Documented by: Benzonatate (Benzonatate 100 Mg Cap) 100 mg PO TID PRN PRN Reason: Cough Cyanocobalamin (Cyanocobalamin (Vitamin B12) 1,000 Mcg Tab) 1,000 mcg PO DAILY [facility] Last Admin: 04/23/21 08:01 Dose: 1,000 mcg Documented by: Dexamethasone (Dexamethasone 4 Mg/Ml Sdv) 6 mg IVPUSH Q24H [facility] Last Admin: 04/22/21 21:58 Dose: Not Given Documented by: Enoxaparin Sodium (Enoxaparin 40 Mg/0.4 Ml Syringe) 40 mg SUBCUT Q24H [facility] Last Admin: 04/22/21 21:58 Dose: Not Given Documented by: Guaifenesin/Dextromethorphan (Guaifenesin/Dextromethorphan 100-10 Mg/5 Ml Soln 10 Ml Cup) 10 ml PO Q4H PRN PRN Reason: Cough Remdesivir 100 mg/ Sodium (Chloride) 100 mls @ 100 mls/hr IV Q24H [facility] Stop: 04/24/21 21:59 Last Admin: 04/22/21 20:50 Dose: 100 mls/hr Documented by: Insulin Human Lispro (Insulin Lispro 100 Unit/Ml 3 Ml Kwikpen) 0 unit SUBCUT QIDACANDBED [facility]; Protocol Last Admin: 04/23/21 07:53 Dose: 2 units Documented by: Lactobacillus Rhamnosus (Lactobacillus Rhamnosus Gg (Probiotic) Cap) 1 cap PO BID [facility] Last Admin: 04/23/21 08:01 Dose: 1 cap Documented by: Lorazepam (Lorazepam 2 Mg/Ml Sdv) 0.5 mg IVPUSH Q4H PRN PRN Reason: Nausea/Vomiting Magnesium Hydroxide (Magnesium Hydroxide 400 Mg/5 Ml Susp 30 Ml Cup) 30 ml PO Q 12H PRN PRN Reason: Constipation Melatonin (Melatonin 3 Mg Tab) 9 mg PO BEDTIME [facility] Last Admin: 04/22/21 20:40 Dose: 9 mg Documented by: Metformin HCl (Metformin 500 Mg Tab) 1,000 mg PO BIDAC [facility] Last Admin: 04/23/21 07:54 Dose: 1,000 mg Documented by: Naltrexone 50 Mg (Tablet Ptom) 0 mg PO DAILY [facility] Last Admin: 04/23/21 08:02 Dose: 25 mg Documented by: Contrave Er 8-90 Mg (Ptom) 0 tab PO BID [facility] Last Admin: 04/23/21 08:01 Dose: 2 tab Documented by: Ondansetron HCl (Ondansetron 4 Mg/2 Ml Sdv) 4 mg IV Q6H PRN PRN Reason: Nausea/Vomiting Ondansetron HCl (Ondansetron 4 Mg Tab.Dis) 4 mg PO Q6H PRN PRN Reason: Nausea able to take PO Pregabalin (Pregabalin 75 Mg Cap) 150 mg PO BID [facility] Last Admin: 04/23/21 08:04 Dose: 150 mg Documented by: Senna/Docusate Sodium (Docusate Sodium/Sennosides 50-8.6 Mg Tab) 1 tab PO BID PRN PRN Reason: Constipation Sodium Chloride (Sodium Chloride 0.9% 10 Ml Syringe) 10 ml FLUSH ASDIRECTED PRN PRN Reason: Keep Vein Open Last Admin: 04/20/21 18:32 Dose: 10 ml Documented by: Discontinued Medications Remdesivir 200 mg/ Sodium (Chloride) 250 mls @ 250 mls/hr IV ONETIME ONE Stop: 04/20/21 21:52 Last Admin: 04/20/21 23:43 Dose: 250 mls/hr Documented by: Ceftriaxone Sodium 1 gm/ (Sodium Chloride) 50 mls @ 100 mls/hr IV Q24H [facility] Stop: 04/22/21 22:29 Last Admin: 04/22/21 21:56 Dose: 100 mls/hr Documented by: - Exam Quality Assessment: Supplemental Oxygen, DVT Prophylaxis General: Alert, Oriented, Cooperative, No Acute Distress Lungs: Clear to Auscultation, Normal Respiratory Effort Cardiovascular: Regular Rate, Regular Rhythm, No Murmurs GI/Abdominal Exam: Soft, Non-Tender, No Organomegaly, No Distention Extremities: Non-Tender, No Pedal Edema - Patient Data Lab Results Last 24 hrs: Laboratory Results - last 24 hr 04/22/21 04/22/21 04/22/21 Range/Units 11:23 16:39 21:00 POC Glucose 163 H 141 H 135 H (74-106) mg/dL 04/23/21 Range/Units 07:20 POC Glucose 166 H (74-106) mg/dL Result Diagrams: 04/22/21 05:00 04/22/21 05:00 Jayson Results Last 24 hrs: Microbiology 04/20/21 20:58 Urine Culture - Final Urine, Clean Catch MIXED POSITIVE JANELLE DAY 2 04/20/21 19:47 Urine Culture - Final Urine, Voided MIXED POSITIVE JANELLE DAY 2 04/20/21 18:05 Aerobic Blood Culture - Preliminary Blood - Arm, Left NO GROWTH AFTER 2 DAYS Anaerobic Blood Culture - Preliminary NO GROWTH AFTER 2 DAYS 04/20/21 18:15 Aerobic Blood Culture - Preliminary Blood - Arm, Left NO GROWTH AFTER 2 DAYS Anaerobic Blood Culture - Preliminary NO GROWTH AFTER 2 DAYS Sepsis Event Note - Evaluation Sepsis Screening Result: No Definite Risk - Focused Exam Vital Signs: Vital Signs Temp Pulse Resp BP Pulse Ox Pulse Ox 04/23/21 09:00 94 L 04/23/21 07:00 97.2 F 65 18 151/79 H 92 L 04/23/21 03:03 95.5 F L 70 18 126/56 L 92 L 04/23/21 02:53 87 L 04/23/21 01:00 90 L - Problem List Review Problem List Initiated/Reviewed/Updated: Yes - My Orders Last 24 Hours: My Active Orders 04/23/21 11:02 CBC WITH AUTO DIFF [HEME] Stat COMPREHENSIVE METABOLIC PN,CMP [CHEM] Stat CRP [C-REACTIVE PROTEIN] [CHEM] Stat 04/24/21 05:11 D Dimer [D-DIMER QUANTITATIVE] [COAG] AM - Plan Plan:: ASSESSMENT AND PLAN COVID-19 pneumonia-complicated by acute respiratory failure with hypoxia. Slowly improving. Oxygenation improving. Still requiring supplemental oxygen but overall doing fairly well. -Dexamethasone 6 mg daily (4) -Remdesivir 200 mg x 1 and then daily x4 -Enoxaparin 40 mg daily -Supplement oxygen -As needed albuterol inhaler -Repeat labs in a.m. -Isolation precautions Acute cystitis without hematuria-UTI could explain some of her confusion. Urine culture growing only mixed janelle -Discontinue ceftriaxone Type 2 diabetes mellitus-controlled so far. -Continue home medications -Sliding scale insulin Chronic pain-stable so far. -Continue home medications (family sent in her home medications) Maintenance issues - -DVT prophylaxis-enoxaparin -GI prophylaxis-not indicated -Nutrition-diabetic Disposition -I anticipate discharge home after the hospital stay, possibly as early as tomorrow if she is able to wean off the supplemental oxygen
[2021-04-23] MEDS: REMDESIVIR 100 MG in Sodium Chloride 0.9% 100 ML IV SCH (21:41)
[2021-04-23] MEDS: atorvaSTATin 20 MG Tab PO SCH (21:46)
[2021-04-23] MEDS: Melatonin 3 MG Tab PO SCH (21:46)
[2021-04-23] MEDS: Enoxaparin 40 MG/0.4 ML Syringe SUBCUT SCH (22:03)
[2021-04-23] MEDS: Dexamethasone 4 MG/ML SDV IVPUSH SCH (22:52)
[2021-04-24] MEDS: Pregabalin 75 MG Cap PO SCH (09:05)
[2021-04-24] MEDS: metFORMIN 500 MG Tab PO SCH (09:05)
[2021-04-24] MEDS: Cyanocobalamin (Vitamin B12) 1,000 MCG Tab PO SCH (09:06)
[2021-04-24] MEDS: Lactobacillus Rhamnosus GG (Probiotic) Cap PO SCH (09:06)
[2021-04-24] MEDS: CONTRAVE PO SCH (09:06)
[2021-04-24] MEDS: NALTREXONE 50 MG PO SCH (09:07)
[2021-04-24] MEDS: Aspirin 81 MG Tab.Chew PO SCH (09:07)
[2021-04-24] MEDS: Insulin Lispro 100 Unit/ML 3 ML KwikPen SUBCUT SCH ×2 (09:08→12:01)
[2021-04-24 12:07] VITALS: BP 123/60; PULSE 80
--- NOTE | 2021-04-24 12:07 | PCM.DCSUM1 ---
Discharge Summary - Hospital Course Brief History: Ms. Smart is a 70-year-old woman who was admitted through the emergency department with weakness and shortness of breath secondary to COVID-19 infection. - Discharge Data Discharge Date: 04/24/21 Discharge Disposition: Home, Self-Care 01 Condition: Fair - Referral to Home Health Primary Care Physician: Ryder Bhatt MD - Discharge Diagnosis/Problem(s) (1) COVID-19 SNOMED Code(s): 591809359 ICD Code: U07.1 - COVID-19 Status: Acute Priority: High Current Visit: Yes (2) Hypoxia SNOMED Code(s): 841463104 ICD Code: R09.02 - HYPOXEMIA Status: Acute Priority: High Current Visit: Yes (3) Pneumonia due to COVID-19 virus SNOMED Code(s): 989476045628710997 ICD Code: U07.1 - COVID-19; J12.82 - PNEUMONIA DUE TO CORONAVIRUS DISEASE 2018 Status: Acute Current Visit: Yes (4) Acute respiratory failure due to COVID-19 SNOMED Code(s): 075332893 ICD Code: U07.1 - COVID-19; J96.00 - ACUTE RESPIRATORY FAILURE, UNSP W HYPOXIA OR HYPERCAPNIA Status: Acute Current Visit: Yes (5) Type 2 diabetes mellitus SNOMED Code(s): 25656671 ICD Code: E11.9 - TYPE 2 DIABETES MELLITUS WITHOUT COMPLICATIONS Status: Chronic Current Visit: Yes Qualifiers: Diabetes mellitus fdc insulin use: without salvage determiner use Diabetes mellitus complication status: with other specified complication Qualified Code(s): E11.69 - Type 2 diabetes mellitus with other specified complication (6) CKD (chronic kidney disease), stage III SNOMED Code(s): 189308179 ICD Code: N18.30 - CHRONIC KIDNEY DISEASE, STAGE 3 UNSPECIFIED Status: Chronic Current Visit: No - Patient Summary/Data Hospital Course: Ms. Smart presented to the emergency room with chills, myalgias, fatigue and shortness of breath. She was a little bit confused and has difficulty recalling recent events so most of the history was gathered from her as well as emergency room personnel. She reports feeling a little off for the past couple of weeks with mild dyspnea and some forgetfulness. She was a little more fatigued than usual yesterday and last night became very weak while trying to go to the bathroom. She had a fall and hit her head. She did not lose consciousness and was able to get up and go back to bed after going to the bathroom. This morning she had myalgias, chills, generalized weakness and some fatigue as well as dyspnea. Symptoms did progress throughout the day. While she was grocery shopping this evening she became so exhausted she could not go any further and was brought in for evaluation. She did report having had her Covid 19 vaccination earlier this year. Work-up in the emergency room revealed a Covid positive swab as well as a moderately elevated D-dimer and CRP. She is hypoxic and requiring about 4 L of supplemental oxygen. On admission she was started on usual course of Decadron as well as remdesivir. During hospital stay Metformin was held but will be resumed on discharge. Glucose levels were monitored and she was given supplemental oxygen as needed. She continued to require supplemental oxygen but by the time of discharge was on room air with adequate oxygenation. Vital signs had remained stable and she was afebrile. She is instructed to self quarantine until May 04 and a follow-up appointment will be scheduled with her primary care provider within 1 week. Activity will be as tolerated and she will remain on a diabetic diet. - Patient Instructions Diet: Diabetic Diet Activity: As Tolerated Other/Special Instructions: She is instructed to self quarantine until May 04. Please schedule follow-up appointment with primary care provider within 1 week. - Discharge Plan *PRESCRIPTION DRUG MONITORING PROGRAM REVIEWED*: Not Applicable *COPY OF PRESCRIPTION DRUG MONITORING REPORT IN PATIENT MARILU: Not Applicable Home Medications: Home Meds Aspirin [Maryjane Chewable Aspirin] 81 mg PO DAILY 08/21/13 [History] FA/Lycopene/Lut/MV,Ca,Iron,Min [Centrum] 1 tab PO DAILY 08/21/13 [History] Lisinopril 2.5 mg PO DAILY 08/21/13 [History] Pregabalin [Lyrica] 150 mg PO BID 08/21/13 [History] atorvaSTATin [Lipitor] 20 mg PO BEDTIME 08/21/13 [History] Ammonium Lactate [Lac-Hydrin 12% Crm] 1 cm TOP BID 01/27/17 [History] Cyanocobalamin (Vitamin B-12) [Vitamin B-12] 1,000 mcg PO DAILY 01/27/17 [History] Flaxseed Oil [Flax Oil] 2,000 mg PO BID 01/27/17 [History] Meclizine [Antivert] 25 mg PO Q6H PRN 01/27/17 [History] Naltrexone 25 mg PO DAILY 01/27/17 [History] Naltrexone HCl/Bupropion HCl [Contrave ER 8-90 mg Tablet] 2 tab PO BID 01/27/17 [History] Triamcinolone Acetonide [Triamcinolone Acetonide 0.1% Oint] 1 cm TOP TID 01/27/17 [History] Dulaglutide [Trulicity] 1.5 mg SQ WEEKLY 04/20/21 [History] metFORMIN HCl [Metformin HCl] 1,000 mg PO BID 04/21/21 [History] Referrals: Ryder Bhatt MD [Primary Care Provider] - 04/27/21 10:30 am (Your appointment with Dr. Bhatt will be a ZOOM appointment. please check your My Chart for instructions. Any questions on Zoom appointment call [facility].) - Discharge Summary/Plan Comment DC Time >30 min.: No - Patient Data Vitals - Most Recent: Last Vital Signs Temp 96.2 F L 04/24/21 09:03 Pulse 79 04/24/21 09:03 Resp 18 04/24/21 09:03 BP 123/71 04/24/21 09:03 Pulse Ox 93 L 04/24/21 09:03 Weight - Most Recent: 239 lb 15.994 oz I&O - Last 24 hours: Intake & Output 04/23/21 04/24/21 04/24/21 22:59 06:59 14:59 Intake Total 600 300 Output Total 825 1200 Balance -225 -900 Lab Results - Last 24 hrs: Laboratory Results - last 24 hr 04/23/21 04/23/21 04/24/21 Range/Units 16:24 21:06 04:10 D-Dimer, Quantitative 829.95 H (0.0-500.0) ng/mL POC Glucose 100 113 H (74-106) mg/dL 04/24/21 04/24/21 Range/Units 07:28 11:26 D-Dimer, Quantitative (0.0-500.0) ng/mL POC Glucose 188 H 203 H (74-106) mg/dL ILINAA Results - Last 24 hrs: Microbiology 04/20/21 18:15 Aerobic Blood Culture - Preliminary Blood - Arm, Left NO GROWTH AFTER 3 DAYS Anaerobic Blood Culture - Preliminary NO GROWTH AFTER 3 DAYS 04/20/21 18:05 Aerobic Blood Culture - Preliminary Blood - Arm, Left NO GROWTH AFTER 3 DAYS Anaerobic Blood Culture - Preliminary NO GROWTH AFTER 3 DAYS Med Orders - Current: Current Medications Acetaminophen (Acetaminophen 325 Mg Tab) 650 mg PO Q4H PRN PRN Reason: Pain (Mild 1-3)/fever Last Admin: 04/20/21 22:50 Dose: 650 mg Documented by: Albuterol (Albuterol 8 Gm Inhaler) 0 gm INH Q4H PRN PRN Reason: shortness of breath/wheezing Aspirin (Aspirin 81 Mg Tab.Chew) 81 mg PO DAILY [facility] Last Admin: 04/24/21 09:07 Dose: 81 mg Documented by: Atorvastatin Calcium (Atorvastatin 20 Mg Tab) 20 mg PO BEDTIME [facility] Last Admin: 04/23/21 21:46 Dose: 20 mg Documented by: Benzonatate (Benzonatate 100 Mg Cap) 100 mg PO TID PRN PRN Reason: Cough Cyanocobalamin (Cyanocobalamin (Vitamin B12) 1,000 Mcg Tab) 1,000 mcg PO DAILY [facility] Last Admin: 04/24/21 09:06 Dose: 1,000 mcg Documented by: Dexamethasone (Dexamethasone 4 Mg/Ml Sdv) 6 mg IVPUSH Q24H [facility] Last Admin: 04/23/21 22:52 Dose: 6 mg Documented by: Enoxaparin Sodium (Enoxaparin 40 Mg/0.4 Ml Syringe) 40 mg SUBCUT Q24H [facility] Last Admin: 04/23/21 22:03 Dose: 40 mg Documented by: Guaifenesin/Dextromethorphan (Guaifenesin/Dextromethorphan 100-10 Mg/5 Ml Soln 10 Ml Cup) 10 ml PO Q4H PRN PRN Reason: Cough Remdesivir 100 mg/ Sodium (Chloride) 100 mls @ 100 mls/hr IV Q24H [facility] Stop: 04/24/21 21:59 Last Admin: 04/23/21 21:41 Dose: 100 mls/hr Documented by: Insulin Human Lispro (Insulin Lispro 100 Unit/Ml 3 Ml Kwikpen) 0 unit SUBCUT QIDACANDBED [facility]; Protocol Last Admin: 04/24/21 09:08 Dose: 2 units Documented by: Lactobacillus Rhamnosus (Lactobacillus Rhamnosus Gg (Probiotic) Cap) 1 cap PO BID [facility] Last Admin: 04/24/21 09:06 Dose: 1 cap Documented by: Lorazepam (Lorazepam 2 Mg/Ml Sdv) 0.5 mg IVPUSH Q4H PRN PRN Reason: Nausea/Vomiting Magnesium Hydroxide (Magnesium Hydroxide 400 Mg/5 Ml Susp 30 Ml Cup) 30 ml PO Q12H PRN PRN Reason: Constipation Melatonin (Melatonin 3 Mg Tab) 9 mg PO BEDTIME [facility] Last Admin: 04/23/21 21:46 Dose: 9 mg Documented by: Metformin HCl (Metformin 500 Mg Tab) 1,000 mg PO BIDAC [facility] Last Admin: 04/24/21 09:05 Dose: 1,000 mg Documented by: Naltrexone 50 Mg (Tablet Ptom) 0 mg PO DAILY [facility] Last Admin: 04/24/21 09:07 Dose: 25 mg Documented by: Contrave Er 8-90 Mg (Ptom) 0 tab PO BID [facility] Last Admin: 04/24/21 09:06 Dose: 2 tab Documented by: Ondansetron HCl (Ondansetron 4 Mg/2 Ml Sdv) 4 mg IV Q6H PRN PRN Reason: Nausea/Vomiting Ondansetron HCl (Ondansetron 4 Mg Tab.Dis) 4 mg PO Q6H PRN PRN Reason: Nausea able to take PO Pregabalin (Pregabalin 75 Mg Cap) 150 mg PO BID [facility] Last Admin: 04/24/21 09:05 Dose: 150 mg Documented by: Senna/Docusate Sodium (Docusate Sodium/Sennosides 50-8.6 Mg Tab) 1 tab PO BID PRN PRN Reason: Constipation Sodium Chloride (Sodium Chloride 0.9% 10 Ml Syringe) 10 ml FLUSH ASDIRECTED PRN PRN Reason: Keep Vein Open Last Admin: 04/20/21 18:32 Dose: 10 ml Documented by: Discontinued Medications Remdesivir 200 mg/ Sodium (Chloride) 250 mls @ 250 mls/hr IV ONETIME ONE Stop: 04/20/21 21:52 Last Admin: 04/20/21 23:43 Dose: 250 mls/hr Documented by: Ceftriaxone Sodium 1 gm/ (Sodium Chloride) 50 mls @ 100 mls/hr IV Q24H [facility] Stop: 04/22/21 22:29 Last Admin: 04/22/21 21:56 Dose: 100 mls/hr Documented by: - Exam General: Reports: Alert, Oriented, Cooperative, No Acute Distress Lungs: Reports: Normal Respiratory Effort, Crackles. Denies: Rales, Rhonchi, Wheezing Cardiovascular: Reports: Regular Rate, Regular Rhythm, No Murmurs GI/Abdominal Exam: Soft, Non-Tender, No Organomegaly, No Distention Extremities: Non-Tender, No Pedal Edema
== END 2021-04-24 13:35 | disposition home or self-care (01) | DRG 177 ==
LOC: JP.ED 17:27 → JP.2SS 20:55
PROVIDERS: ADMIT Internal Medicine; ATTEND Hospitalist
PROC: XW033E5 Introduction of Remdesivir Anti-infective into Peripheral Vein, Percutaneous Approach, New Technology Group 5 (ICD-10-PCS; principal; 2021-04-20)
DX: U07.1 COVID-19 (principal); N39.0 Urinary tract infection, site not specified; R09.02 Hypoxemia; J12.82 Pneumonia due to coronavirus disease 2019; I10 Essential (primary) hypertension; J96.01 Acute respiratory failure with hypoxia; E11.9 Type 2 diabetes mellitus without complications; N30.00 Acute cystitis without hematuria; E11.22 Type 2 diabetes mellitus with diabetic chronic kidney disease; Z85.828 Personal history of other malignant neoplasm of skin; H26.9 Unspecified cataract; N18.30 Chronic kidney disease, stage 3 unspecified; E78.00 Pure hypercholesterolemia, unspecified; F32.9 Major depressive disorder, single episode, unspecified; Z96.641 Presence of right artificial hip joint; I12.9 Hypertensive chronic kidney disease with stage 1 through stage 4 chronic kidney disease, or unspecified chronic kidney disease; E53.8 Deficiency of other specified B group vitamins; Z90.89 Acquired absence of other organs; Z90.49 Acquired absence of other specified parts of digestive tract; Z79.82 Long term (current) use of aspirin; Z79.84 Long term (current) use of oral hypoglycemic drugs; Z79.899 Other long term (current) drug therapy; Z86.718 Personal history of other venous thrombosis and embolism; Z98.51 Tubal ligation status; G89.29 Other chronic pain
CPT/HCPCS: 0241U; 36415; 70450; 71045; 80053; 81001; 82947; 83605; 84145; 85025; 85027; 85379; 86140; 87040; 87086; 94762; 99285; A9270-GY; J0696; J1100; J1650; J1815; J7050